=== PATIENT | female | born 1955 | race Caucasian/White ===

== ENCOUNTER 2017-07-13 05:54 | Inpatient (IN) | payer OTHER ==
--- NOTE | 2017-07-12 11:18 | PCM.PREANE ---
Preanesthetic Assessment - Anesthesia/Transfusion/Family Hx Anesthesia History: Prior Anesthesia Without Reaction Family History of Anesthesia Reaction: No Transfusion History: No Prior Transfusion(s) Intubation History: Unknown - Review of Systems General: No Symptoms Pulmonary: No Symptoms (ROSALIE-CPAP at night) Cardiovascular: No Symptoms Gastrointestinal: No Symptoms Neurological: No Symptoms (History of vertigo), Tingling (History of back surgery/laminectomy 2009-left sided sciatica pain) Other: Reports: Easy Bruising, Thyroid Problems (History of hypothyroidism) - Physical Assessment NPO Status Date: 07/12/17 NPO Status Time: 21:30 Pulse: 66 O2 Sat by Pulse Oximetry: 96 Respiratory Rate: 16 Blood Pressure: 128/65 Temperature: 36.9 C Height: 1.57 m Weight: 99 kg ASA Class: 2 Mental Status: Alert & Oriented x3 Airway Class: Mallampati = 3 Dentition: Reports: Normal Dentition, Avera(s) (dental implants), Caries Thyro-Mental Finger Breadths: 3 Mouth Opening Finger Breadths: 3 ROM/Head Extension: Full Lungs: Clear to Auscultation, Normal Respiratory Effort Cardiovascular: Regular Rate, Regular Rhythm, No Murmurs - Lab Values: Laboratory Last Values MRSA (PCR) Negative 07/04/17 15:12 All lab values reviewed and noted and within acceptable ranges to proceed with scheduled procedure. - Imaging/EKG Impressions: CXR: unremarkable EKG:Sinus bradycardia rate= 58 - Allergies Allergies/Adverse Reactions: Allergies Allergy/AdvReac Type Severity Reaction Status Date / Time No Known Allergies Allergy Verified 07/12/17 13:06 - Anesthesia Plan Pre-Op Medication Ordered: None - Acknowledgements Anesthesia Type Planned: Spinal (Right adductor canal block under US guidance for post operative pain control requested by Dr. Le) Pt an Appropriate Candidate for the Planned Anesthesia: Yes Alternatives and Risks of Anesthesia Discussed w Pt/Guardian: Yes Pt/Guardian Understands and Agrees with Anesthesia Plan: Yes PreAnesthesia Questionnaire Other HEENT History: wears contact Other Psychiatric History: claustophobic - SUBSTANCE USE Smoking Status *Q: Never Smoker Days Per Week of Alcohol Use: 0 Number of Drinks Per Day: 0 Total Drinks Per Week: 0 Recreational Drug Use History: No - HOME MEDS Home Medications: Home Meds Aspirin [Rayne Chewable Aspirin] 1 tab PO DAILY 12/01/14 [History] Multivitamin [Multi-Vitamin Daily] 1 tab PO DAILY 03/03/14 [History] Tolterodine [Detrol] 1 mg PO DAILY PRN 03/03/14 [History] Vitamin B Complex [B Complex] 1 tab PO DAILY 03/03/14 [History] Lutein/Minerals/Vit A,C & E [Ocuvite] 1 tab PO DAILY 02/16/15 [History] Ibuprofen 600 mg PO Q4HR PRN #30 tablet 02/17/15 [Rx] Ascorbic Acid [Vitamin C] 500 mg PO BID 07/12/17 [History] Ca Carbonate/Vitamin D3/Vit K [Calcium + D Soft Chewable Tab] 1 tab PO DAILY 02/18 [History] Levothyroxine [Synthroid] 50 mcg PO DAILY 07/12/17 [History] Ubidecarenone [COQ-10] 30 mg PO DAILY 07/12/17 [History] rOPINIRole HCl [Requip] 0.5 mg PO DAILY PRN 07/12/17 [History] Acetaminophen [Tylenol] 2 tab PO ASDIRECTED PRN 07/13/17 [History] - CURRENT (IN HOUSE) MEDS Current Meds: Current Medications Acetaminophen (Tylenol) 975 mg PO ASDIRECTED ALYSA Stop: 07/13/17 12:00 Lactated Ringer's (Ringers, Lactated) 1,000 mls @ 125 mls/hr IV ASDIRECTED ALYSA Stop: 07/13/17 23:00 Lidocaine/Sodium Bicarbonate (Buffered Lidocaine 1% In Ns 8.4%) 0.25 ml IDERM ONETIME PRN PRN Reason: Prior to IV Start Stop: 07/13/17 18:00 Oxycodone HCl (Oxycontin) 10 mg PO ASDIRECTED ALYSA Stop: 07/13/17 12:00 Pregabalin (Lyrica) 50 mg PO ASDIRECTED ALYSA Stop: 07/13/17 12:00 Sodium Chloride (Saline Flush) 10 ml FLUSH ASDIRECTED PRN PRN Reason: Keep Vein Open Stop: 07/13/17 18:00
[~2017-07-13 05:54] MED LIST: EPINEPHrine 1 MG/ML SDV ONE; Lactated Ringers 1,000 ML IV SCH; Lidocaine 1%/Sod Bicarbonate in NS 8.4% 1 ML Syringe IDERM PRN; Ropivacaine 0.5% 5 MG/ML 30 ML SDV ONE; Scopolamine 1.5 MG Transdermal Patch TRDERM SCH; Sodium Chloride 0.9% 10 ML Syringe FLUSH PRN
[2017-07-13] MEDS ORDERED: Iodine/Sodium Iodide 2% Tincture 30 ML Bottle ONE (06:04)
[2017-07-13] MEDS ORDERED: ceFAZolin 1 GM Vial ONE ×2 (06:04→06:25)
[2017-07-13] MEDS ORDERED: Lactated Ringers 1,000 ML ONE ×2 (06:25→08:36)
[2017-07-13] MEDS ORDERED: Bupivacaine 0.75% 30 ML SDV ONE (06:25)
[2017-07-13] MEDS ORDERED: Phenylephrine 1% 10 MG/ML SDV ONE (06:25)
[2017-07-13] MEDS ORDERED: Ketorolac 30 MG/ML SDV ONE (06:25)
[2017-07-13] MEDS ORDERED: Ondansetron 4 MG/2 ML SDV ONE (06:25)
[2017-07-13] MEDS ORDERED: Ketamine 500 mg/10 ML MDV ONE (06:26)
[2017-07-13] MEDS ORDERED: fentaNYL 100 MCG/2 ML SDV ONE (06:26)
[2017-07-13] MEDS ORDERED: Propofol 200 MG/20 ML SDV ONE ×2 (06:26→08:35)
[2017-07-13] MEDS ORDERED: Midazolam 1 MG/ML 2 ML SDV ONE (06:26)
[2017-07-13] MEDS ORDERED: Morphine PF 10 MG/10 ML SDV ONE (06:27)
[2017-07-13] MEDS ORDERED: oxyCODONE ER 10 MG TAB.ER PO SCH (06:30)
[2017-07-13] MEDS ORDERED: Pregabalin 25 MG Cap PO SCH (06:30)
[2017-07-13] MEDS ORDERED: Acetaminophen 325 MG Tab PO SCH (06:30)
[2017-07-13] MEDS ORDERED: Bisacodyl 5 MG Tab PO PRN (06:53)
[2017-07-13] MEDS ORDERED: diphenhydrAMINE 50 MG/ML SDV IVPUSH PRN ×2 (06:53→07:20)
[2017-07-13] MEDS ORDERED: Morphine 2 MG/ML Syringe IVPUSH PRN (06:53)
[2017-07-13] MEDS ORDERED: Magnesium Hydroxide 400 MG/5 ML Susp 30 ML Cup PO PRN (06:53)
[2017-07-13] MEDS ORDERED: Ondansetron 4 MG/2 ML SDV IVPUSH PRN ×2 (06:53→07:20)
[2017-07-13] MEDS ORDERED: Naloxone 0.4 MG/ML SDV IVPUSH PRN (06:53)
[2017-07-13] MEDS ORDERED: Sennosides 8.6 MG Tab PO PRN (06:53)
[2017-07-13] MEDS ORDERED: Ketorolac 15 MG/ML SDV IVPUSH PRN (06:53)
[2017-07-13] MEDS ORDERED: Cyclobenzaprine 10 MG Tab PO PRN (06:53)
[2017-07-13] MEDS ORDERED: ceFAZolin 2 GM in Premix Bag 1 BAG IV SCH (07:00)
[2017-07-13] MEDS ORDERED: Haloperidol Lactate 5 MG/ML SDV IVPUSH ONE (07:20)
[2017-07-13] MEDS ORDERED: fentaNYL 100 MCG/2 ML SDV IVPUSH PRN (07:20)
[2017-07-13] MEDS ORDERED: ePHEDrine 50 MG/ML SDV IVPUSH PRN (07:20)
[2017-07-13] MEDS ORDERED: HYDROmorphone 0.5 MG/0.5 ML Syringe IVPUSH PRN (07:21)
[2017-07-13] MEDS ORDERED: Phenylephrine 1 MG in Sodium Chloride 0.9% 10 ML IV SCH (07:30)
[2017-07-13] MEDS ORDERED: Lidocaine 1% 2 ML ONE ×2 (07:30)
[2017-07-13] MEDS: Bupivacaine 0.25% 30 ML SDV ONE ×2 (08:12→08:19)
[2017-07-13] MEDS: Morphine 8 MG, EPINEPHrine 0.3 MG, Cefuroxime 750 MG, Ketorolac 30 MG, Sodium Chloride ... ONE ×10 (08:13→08:20)
[2017-07-13] MEDS: Vancomycin 1 GM SDV ONE ×2 (08:15→08:20)
--- NOTE | 2017-07-13 09:00 | PCM.POSTAN ---
POST ANESTHESIA ASSESSMENT - MENTAL STATUS Mental Status: Alert - VITAL SIGNS Pulse Rate: 72 SaO2: 93 Resp Rate: 24 Blood Pressure: 100/45 Temperature: 36.4 C - RESPIRATORY Respiratory Status: Respiratory Rate WNL, Airway Patent, O2 Saturation Stable, Supplemental Oxygen - CARDIOVASCULAR CV Status: Pulse Rate WNL, Blood Pressure Stable - GASTROINTESTINAL GI Status: No Symptoms - POST OP HYDRATION Hydration Status: Adequate & Stable
--- NOTE | 2017-07-13 09:24 | PCM.CONS ---
H&P History of Present Illness - General Date of Service: 07/13/17 Admit Problem/Dx: Admission Diagnosis/Problem Admission Diagnosis/Problem Osteoarthritis of knee Source of Information: Patient, Old Records, Provider, RN, Other (Surgical notes ) History Limitations: Reports: No Limitations - History of Present Illness Initial Comments - Free Text/Narative: Rebecca Sanchez is a 62 yo female patient of Dr. Le who is post-operative day 0 of right TKA. Hospital medicine was consulted for post-operative medical care. At this time she is resting comfortably in bed. Pain is controlled at 2/10. She denies any chest pain, shortness of breath, palpitations, or vomiting. She did have some nausea earlier but it has since resolved. She carries a history of: HLD, hypothyroid, ROSALIE, RLS, incontinence, vertigo, depression. She was never a smoker. She is a full code. Her primary care provider is Dr. Chelo Quiroz. Right Knee Pain Score (Numeric/FACES): 2 - Related Data Allergies/Adverse Reactions: Allergies Allergy/AdvReac Type Severity Reaction Status Date / Time No Known Allergies Allergy Verified 07/12/17 13:06 Home Medications: Home Meds Aspirin [Rayne Chewable Aspirin] 1 tab PO DAILY 03/03/14 [History] Multivitamin [Multi-Vitamin Daily] 1 tab PO DAILY 03/03/14 [History] Tolterodine [Detrol] 1 mg PO DAILY PRN 03/03/14 [History] Vitamin B Complex [B Complex] 1 tab PO DAILY 03/03/14 [History] Lutein/Minerals/Vit A,C & E [Ocuvite] 1 tab PO DAILY 02/16/15 [History] Ibuprofen 600 mg PO Q4HR PRN #30 tablet 02/17/15 [Rx] Ascorbic Acid [Vitamin C] 500 mg PO BID 07/12/17 [History] Ca Carbonate/Vitamin D3/Vit K [Calcium + D Soft Chewable Tab] 1 tab PO DAILY 02/18 [History] Levothyroxine [Synthroid] 50 mcg PO DAILY 07/12/17 [History] Ubidecarenone [COQ-10] 30 mg PO DAILY 07/12/17 [History] rOPINIRole HCl [Requip] 0.5 mg PO DAILY PRN 07/12/17 [History] Acetaminophen [Tylenol] 2 tab PO ASDIRECTED PRN 07/13/17 [History] Past Medical History HEENT History: Reports: Other (See Below) Other HEENT History: wears contact Cardiovascular History: Reports: High Cholesterol Respiratory History: Reports: Sleep Apnea Gastrointestinal History: Reports: None Genitourinary History: Reports: Urinary Incontinence [employer]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 Musculoskeletal History: Reports: Other (See Below) Other Musculoskeletal History: restless leg syndrome Neurological History: Reports: Vertigo Psychiatric History: Reports: Depression Other Psychiatric History: claustophobic Endocrine/Metabolic History: Reports: Hypothyroidism, Obesity/BMI 30+, Vitamin D Deficiency Hematologic History: Reports: None Immunologic History: Reports: None Oncologic (Cancer) History: Reports: None Dermatologic History: Reports: Other (See Below) Other Dermatologic History: lesion to face - Past Surgical History Head Surgeries/Procedures: Reports: None HEENT Surgical History: Reports: Tonsillectomy Cardiovascular Surgical History: Reports: None Respiratory Surgical History: Reports: None GI Surgical History: Reports: Colonoscopy Female Surgical History: Reports: D&C Male Surgical History: Reports: None Endocrine Surgical History: Reports: None Neurological Surgical History: Reports: Laminectomy Social & Family History - Tobacco Use Smoking Status *Q: Never Smoker - Caffeine Use Caffeine Use: Reports: Coffee, Soda - Alcohol Use Days Per Week of Alcohol Use: 0 Number of Drinks Per Day: 0 Total Drinks Per Week: 0 - Recreational Drug Use Recreational Drug Use: No Drug Use in Last 12 Months: No H&P Review of Systems - Review of Systems: Review Of Systems: See Below General: Reports: No Symptoms HEENT: Reports: No Symptoms Pulmonary: Reports: No Symptoms Cardiovascular: Reports: No Symptoms Gastrointestinal: Reports: No Symptoms Genitourinary: Reports: No Symptoms Musculoskeletal: Reports: Joint Pain Skin: Reports: No Symptoms Psychiatric: Reports: No Symptoms Neurological: Reports: No Symptoms Hematologic/Lymphatic: Reports: No Symptoms Immunologic: Reports: No Symptoms Exam - Exam Exam: See Below - Vital Signs Vital Signs: Last Vital Signs Temp 97.6 F 07/13/17 09:00 Pulse 72 07/13/17 09:00 Resp 24 H 07/13/17 09:00 BP 100/45 L 07/13/17 09:00 Pulse Ox 93 L 07/13/17 09:00 Weight: 218 lb 4.122 oz - Exam Quality Assessment: DVT Prophylaxis General: Alert, Oriented, Cooperative. No: Mild Distress HEENT: Conjunctiva Clear, EACs Clear, EOMI, Hearing Intact, Mucosa Moist & [place] , Nares Patent, Posterior Pharynx Clear, PERRLA Neck: Supple, Trachea Midline Lungs: Clear to Auscultation, Normal Respiratory Effort Cardiovascular: Regular Rate, Regular Rhythm GI/Abdominal Exam: Normal Bowel Sounds, Soft, Non-Tender, No Organomegaly, No Distention, No Abnormal Bruit, No Mass, Pelvis Stable (Female) Exam: Deferred Rectal (Female) Exam: Deferred Back Exam: Normal Inspection, Full Range of Motion Extremities: No Pedal Edema, Normal Capillary Refill, Leg Pain, Limited Range of Motion, Other (ARAMIS bandgae on right leg. Bandage is dry and intact. Cooling pack in place. ) Peripheral Pulses: 2+: Posterior Tibial (L), Posterior Tibial (R), Dorsalis Pedis (L), Dorsalis Pedis (R), 3+: Radial (L), Radial (R) Skin: Warm, Dry, Intact Neurological: Cranial Nerves Intact (grossly ) Neuro Extensive - Mental Status: Alert, Oriented x3, Normal Mood/Affect, Normal Cognition, Memory Intact Psychiatric: Alert, Normal Affect, Normal Mood Consult PN Assessment/Plan POD#: 0 Procedures: Procedures ASSAY OF CK (CPK) (02/17/15) ASSAY OF GONADOTROPIN (FSH) (01/13/14) ASSAY OF GONADOTROPIN (LH) (01/13/14) BLOOD TYPING SEROLOGIC ABO (02/17/15) BLOOD TYPING SEROLOGIC RH(D) (02/17/15) BONE IMAGING LIMITED AREA (02/01/16) COMP SCREEN MAMMOGRAM ADD-ON (03/02/15) COMPLETE CBC AUTOMATED (02/17/15) COMPLETE CBC W/AUTO DIFF WBC (02/17/14) DXA BONE DENSITY AXIAL (03/02/15) ELECTROCARDIOGRAM TRACING (03/04/14) HYSTEROSCOPY BIOPSY (03/04/14) RBC ANTIBODY SCREEN (02/17/15) REPAIR BLADDER DEFECT (02/17/15) ROUTINE VENIPUNCTURE (02/17/15) TISSUE EXAM BY PATHOLOGIST (02/17/15) TISSUE EXAM BY PATHOLOGIST (03/04/14) URINALYSIS AUTO W/O SCOPE (02/17/14) US EXAM PELVIC COMPLETE (12/10/13) VAG HYST INCLUDING T/O (02/17/15) (1) S/P total knee arthroplasty SNOMED Code(s): 3717296032103, 950972365, 8468848449728 Code(s): Z96.659 - PRESENCE OF UNSPECIFIED ARTIFICIAL KNEE JOINT Priority: High Current Visit: Yes Qualifiers: Laterality: right Qualified Code(s): Z96.651 - Presence of right artificial knee joint (2) Osteoarthritis SNOMED Code(s): 380722750 Code(s): M19.90 - UNSPECIFIED OSTEOARTHRITIS, UNSPECIFIED SITE Priority: High Current Visit: Yes Qualifiers: Osteoarthritis location: knee Osteoarthritis type: primary Laterality: right Qualified Code(s): M17.11 - Unilateral primary osteoarthritis, right knee (3) HLD (hyperlipidemia) SNOMED Code(s): 14850140 Code(s): E78.5 - HYPERLIPIDEMIA, UNSPECIFIED Priority: Low Current Visit : No Qualifiers: Hyperlipidemia type: unspecified Qualified Code(s): E78.5 - Hyperlipidemia , unspecified (4) Hypothyroidism SNOMED Code(s): 97120556 Code(s): E03.9 - HYPOTHYROIDISM, UNSPECIFIED Priority: Low Current Visit : No Qualifiers: Hypothyroidism type: unspecified Qualified Code(s): E03.9 - Hypothyroidism , unspecified (5) Sleep apnea SNOMED Code(s): 01666287 Code(s): G47.30 - SLEEP APNEA, UNSPECIFIED Priority: Medium Current Visit : Yes Qualifiers: Sleep apnea type: unspecified type Qualified Code(s): G47.30 - Sleep apnea , unspecified (6) RLS (restless legs syndrome) SNOMED Code(s): 65886380 Code(s): G25.81 - RESTLESS LEGS SYNDROME Priority: Low Current Visit: No (7) Incontinence SNOMED Code(s): 93636838 Code(s): R32 - UNSPECIFIED URINARY INCONTINENCE Priority: Low Current Visit: No Qualifiers: Incontinence type: urinary Urinary Incontinence type: unspecified incontinence Qualified Code(s): R32 - Unspecified urinary incontinence (8) Vertigo SNOMED Code(s): 484413514 Code(s): R42 - DIZZINESS AND GIDDINESS Priority: Low Current Visit: No (9) Other specified depressive episodes SNOMED Code(s): 44904642 Code(s): F32.89 - OTHER SPECIFIED DEPRESSIVE EPISODES Priority: Low Current Visit: No Problem List Initiated/Reviewed/Updated: Yes Plan: I/P: Acute: S/P right total knee arthroplasty - post-operative day 0 -DVT prophylaxis and pain management per primary care team -PT/OT -IS/RT -Monitor oxygen saturation -Titrate oxygen as needed -Vital signs stable -Monitor labs -Pre-operative Hgb was 14.4 -Pre-operative GFR 64 Osteoarthritis of right knee -Pain management per primary care team Bradycardia -Noted on Pre-operative exam -Asymptomatic -Monitor Chronic: HLD Hypothyroid ROSALIE RLS Incontinence Vertigo Depression Plan: CM for discharge planning GI prophylaxis Home medications as indicated Other orders as listed above Routine AM labs She is a full code. Her PCP is Dr. Chelo Quiroz at [facility] Thank you for allowing us to participate in the care of this patient!! Requesting Provider: Dr. Le Date Consult Requested: 07/13/17 Reason for Consult: Post-operative medical managmenet Patient History Reviewed: Yes Admission H&P Reviewed: Yes Time Spent (in minutes): 30
--- NOTE | 2017-07-13 10:22 | PCM.SN ---
- Free Text/Narrative Note: Right selective femoral nerve block at the adductor canal for post-procedure pain control under US guidance requested by Dr. Le. Date: 07/13/17 Time Out: 902 Start: 903 End: 916 Chart reviewed. Consent signed. Questions answered. Appropriate monitors applied. Time out performed. Right mid-shaft femur identified with ultrasound, scanning medially of femur, the femoral artery in the adductor canal visualized , and the femoral nerve located laterally to the artery. The skin was prepped lateral to the ultrasound probe with chlorahexadine times two. The 21ga 4 insulated block needle was inserted under direct ultrasound guidance into the adductor canal. 30mL of 0.5% ropivacaine with 1:200,000 epinephrine was injected circumferentially around the nerve with intermittent negative aspiration noted. Patient tolerated the procedure well. Aseptic technique noted along with sterile gloves, mask, and sterile probe cover. See pictures on progress note and vital signs on nurses notes. Block completed in PACU. Shirin Dye CRNA
[2017-07-13] MEDS ORDERED: rOPINIRole 0.25 MG Tab PO PRN (10:30)
[2017-07-13] MEDS ORDERED: Tolterodine 2 MG Tab PO PRN (10:30)
--- NOTE | 2017-07-13 10:39 | CR ---
Right knee: AP and lateral views of the right knee were obtained. Comparison: No previous knee study. Knee prosthesis is noted. Components are aligned. Soft tissue air is noted from the surgical procedure. Underlying bony structures are intact. Impression: 1. Satisfactory postoperative radiographic appearance of recently placed right knee prosthesis. Diagnostic code #2
[2017-07-13] MEDS: Famotidine 20 MG Tab PO SCH ×2 (13:44→18:01)
[2017-07-13] MEDS: Acetaminophen/oxyCODONE 325-5 MG Tab PO PRN ×2 (13:46→18:01)
[2017-07-13] MEDS: ceFAZolin 2 GM in Premix Bag 1 BAG IV SCH (13:47)
[2017-07-13] MEDS: Multivitamins,Therapeutic Tab PO SCH (13:59)
[2017-07-13] MEDS ORDERED: Metoclopramide 10 MG/2 ML SDV IVPUSH PRN (16:13)
[2017-07-13] MEDS: Docusate Sodium 100 MG Cap PO SCH (20:13)
[2017-07-14] MEDS: ceFAZolin 2 GM in Premix Bag 1 BAG IV SCH ×2 (00:32→07:07)
[2017-07-14] MEDS: Acetaminophen/oxyCODONE 325-5 MG Tab PO PRN ×3 (00:33→13:32)
--- NOTE | 2017-07-14 06:34 | PCM.CONSN ---
- General Info Date of Service: 07/14/17 Admission Dx/Problem (Free Text): Admission Diagnosis/Problem Admission Diagnosis/Problem Osteoarthritis of knee Subjective Update: In to see Rebecca. She is sitting up eating in the chair. She has been working with PT earlier and doing well. Her oxygen saturations dropped a bit overnight. I did discuss this with RT and they advised she wear her CPAP religiously at night and when napping. Saturations have been good today and she was weaned off O2. Patient has no concerns today. She did have an episode of emesis after showering but states it resolved rapidly. She is not nauseated now. She is doing well and will be discharged today. Functional Status: Reports: Pain Controlled, Tolerating Diet, Ambulating, Urinating. Denies: New Symptoms - Review of Systems General: Reports: No Symptoms. Denies: Weakness, Fatigue HEENT: Reports: No Symptoms Pulmonary: Reports: No Symptoms. Denies: Shortness of Breath, Cough, Sputum, Wheezing Cardiovascular: Reports: No Symptoms. Denies: Chest Pain, Palpitations Gastrointestinal: Reports: No Symptoms. Denies: Abdominal Pain, Constipation, Diarrhea, Nausea, Vomiting Genitourinary: Reports: No Symptoms. Denies: Dysuria, Frequency, Pain Musculoskeletal: Reports: Joint Pain Skin: Reports: No Symptoms Neurological: Reports: No Symptoms Psychiatric: Reports: No Symptoms - Patient Data Vitals - Most Recent: Last Vital Signs Temp 97.5 F 07/13/17 20:00 Pulse 51 L 07/13/17 20:00 Resp 14 07/13/17 20:00 BP 113/55 L 07/13/17 20:00 Pulse Ox 97 07/13/17 20:00 Weight - Most Recent: 226 lb 1.6 oz I&O - Last 24 Hours: Intake & Output 07/13/17 07/13/17 07/14/17 14:59 22:59 06:59 Intake Total 600 1100 240 Output Total 275 2050 625 Balance 325 -950 -385 Med Orders - Current: Current Medications Aspirin (Ecotrin) 325 mg PO BID ALYSA Bisacodyl (Dulcolax) 5 mg PO DAILY PRN PRN Reason: Constipation Cyclobenzaprine HCl (Flexeril) 10 mg PO TID PRN PRN Reason: Spasms Diphenhydramine HCl (Benadryl) 25 mg IVPUSH Q6H PRN PRN Reason: pruritis Docusate Sodium (Colace) 100 mg PO BID [facility] Last Admin: 07/13/17 20:13 Dose: 100 mg Famotidine (Pepcid) 20 mg PO Q12H [facility] Last Admin: 07/13/17 18:01 Dose: 20 mg Cefazolin Sodium/Dextrose 2 gm (/ Premix) 50 mls @ 100 mls/hr IV Q8H [facility] Stop: 07/14/17 06:59 Last Admin: 07/14/17 00:32 Dose: 100 mls/hr Ketorolac Tromethamine (Toradol) 15 mg IVPUSH Q6H PRN PRN Reason: Pain Levothyroxine Sodium (Synthroid) 50 mcg PO ACBRK [facility] Magnesium Hydroxide (Milk Of Magnesia) 30 ml PO BID PRN PRN Reason: Constipation Metoclopramide HCl (Reglan) 5 mg IVPUSH Q6H PRN PRN Reason: Nausea/Vomiting Last Admin: 07/13/17 17:08 Dose: 5 mg Morphine Sulfate (Morphine) 2 mg IVPUSH Q2H PRN PRN Reason: Breakthrough Pain Multivitamins (Thera) 1 each PO DAILY [facility] Last Admin: 07/13/17 13:59 Dose: Not Given Naloxone HCl (Narcan) 0.1 mg IVPUSH Q5M PRN PRN Reason: Oversedation Ondansetron HCl (Zofran) 4 mg IVPUSH Q6H PRN PRN Reason: Nausea/Vomiting Last Admin: 07/13/17 11:56 Dose: 4 mg Ondansetron HCl (Zofran) 4 mg IVPUSH ONETIME PRN PRN Reason: Nausea/Vomiting Oxycodone/Acetaminophen (Percocet 325-5 Mg) 1 - 2 tab PO Q4H PRN PRN Reason: Pain Last Admin: 07/14/17 00:33 Dose: 1 tab Ubidecarenone 30 Mg 0 each PO DAILY [facility] Ropinirole HCl (Requip) 0.5 mg PO DAILY PRN PRN Reason: RESTLESS LEGS Senna (Senna) 8.6 mg PO BID PRN PRN Reason: Constipation Tolterodine Tartrate (Detrol) 1 mg PO DAILY PRN PRN Reason: URGENCY Vitamin B Complex/Vitamin C (Super B With Vitamin C) 1 cap PO DAILY [facility] Discontinued Medications Acetaminophen (Tylenol) 975 mg PO ASDIRECTED [facility] Stop: 07/13/17 12:00 Last Admin: 07/13/17 06:23 Dose: 975 mg Bupivacaine HCl (Sensorcaine-Mpf 0.75%) Confirm Administered Dose 60 ml .ROUTE .STK-MED ONE Stop: 07/13/17 06:26 Bupivacaine HCl (Marcaine 0.25%) Confirm Administered Dose 30 ml .ROUTE .STK- MED ONE Stop: 07/13/17 06:05 Last Admin: 07/13/17 08:12 Dose: 30 ml Cefazolin Sodium (Ancef) Confirm Administered Dose 2 gm .ROUTE .STK-MED ONE Stop: 07/13/17 06:26 Last Admin: 07/13/17 08:09 Dose: 2 gm Cefazolin Sodium (Ancef) Confirm Administered Dose 2 gm .ROUTE .STK-MED ONE Stop: 07/13/17 06:05 Morphine Sulfate 8 mg/Epinephrine HCl 0.3 mg/Cefuroxime Sodium 750 mg/Ketorolac Tromethamine 30 mg/Sodium Chloride 27.9 ml 0 mg .XX ONETIME ONE Stop: 07/13/17 07:46 Last Admin: 07/13/17 08:13 Dose: 788.3 mg Diphenhydramine HCl (Benadryl) 25 mg IVPUSH Q4H PRN PRN Reason: Nausea Ephedrine Sulfate (Ephedrine Sulfate) 5 mg IVPUSH ASDIRECTED PRN PRN Reason: Hypotension Epinephrine HCl (Adrenalin) Confirm Administered Dose 1 mg .ROUTE .STK-MED ONE Stop: 07/13/17 05:44 Fentanyl (Sublimaze) Confirm Administered Dose 100 mcg .ROUTE .STK-MED ONE Stop: 07/13/17 06:27 Fentanyl (Sublimaze) 50 mcg IVPUSH Q5M PRN PRN Reason: Pain Haloperidol Lactate (Haldol) 1 mg IVPUSH ONETIME ONE Stop: 07/13/17 07:21 Last Admin: 07/13/17 14:00 Dose: Not Given Hydromorphone HCl (Dilaudid) 0.5 mg IVPUSH ONETIME PRN PRN Reason: Pain Lactated Ringer's (Ringers, Lactated) 1,000 mls @ 125 mls/hr IV ASDIRECTED [facility] Stop: 07/13/17 23:00 Last Admin: 07/13/17 06:30 Dose: 125 mls/hr Lactated Ringer's (Ringers, Lactated) Confirm Administered Dose 1,000 mls @ as directed .ROUTE .STK-MED ONE Stop: 07/13/17 06:26 Cefazolin Sodium/Dextrose 2 gm (/ Premix) 50 mls @ 100 mls/hr IV Q8H [facility] Stop: 07/13/17 23:29 Last Admin: 07/13/17 14:00 Dose: Not Given Lidocaine HCl (Xylocaine-Mpf 1%) Confirm Administered Dose 2 mls @ as directed .ROUTE .STK-MED ONE Stop: 07/13/17 07:31 Lidocaine HCl (Xylocaine-Mpf 1%) Confirm Administered Dose 2 mls @ as directed .ROUTE .STK-MED ONE Stop: 07/13/17 07:31 Phenylephrine HCl 1 mg/ Sodium (Chloride) 10.1 mls @ 1 mls/sec IV TITRATE ALYSA; Protocol Lactated Ringer's (Ringers, Lactated) Confirm Administered Dose 1,000 mls @ as directed .ROUTE .STK-MED ONE Stop: 07/13/17 08:37 Iodine (Iodine 2% Mild Tincture) Confirm Administered Dose 30 ml .ROUTE .STK- MED ONE Stop: 07/13/17 06:05 Last Admin: 07/13/17 08:05 Dose: 18 ml Ketamine HCl (Ketalar) Confirm Administered Dose 500 mg .ROUTE .STK-MED ONE Stop: 07/13/17 06:27 Ketorolac Tromethamine (Toradol) Confirm Administered Dose 30 mg .ROUTE .STK- MED ONE Stop: 07/13/17 06:26 Lidocaine HCl (Xylocaine-Mpf 1%) Confirm Administered Dose 25 ml .ROUTE .STK- MED ONE Stop: 07/13/17 06:26 Lidocaine/Sodium Bicarbonate (Buffered Lidocaine 1% In Ns 8.4%) 0.25 ml IDERM ONETIME PRN PRN Reason: Prior to IV Start Stop: 07/13/17 18:00 Last Admin: 07/13/17 06:30 Dose: 0.25 ml Midazolam HCl (Versed 1 Mg/Ml) Confirm Administered Dose 2 mg .ROUTE .STK-MED ONE Stop: 07/13/17 06:27 Morphine Sulfate (Duramorph Pf) Confirm Administered Dose 10 mg .ROUTE .STK-MED ONE Stop: 07/13/17 06:28 Ondansetron HCl (Zofran) Confirm Administered Dose 4 mg .ROUTE .STK-MED ONE Stop: 07/13/17 06:26 Oxycodone HCl (Oxycontin) 10 mg PO ASDIRECTED [facility] Stop: 07/13/17 12:00 Last Admin: 07/13/17 06:22 Dose: 10 mg Phenylephrine HCl (Jeffrey-Synephrine) Confirm Administered Dose 10 mg .ROUTE .STK- MED ONE Stop: 07/13/17 06:26 Pregabalin (Lyrica) 50 mg PO ASDIRECTED [facility] Stop: 07/13/17 12:00 Last Admin: 07/13/17 06:22 Dose: 50 mg Propofol (Diprivan 20 Ml) Confirm Administered Dose 400 mg .ROUTE .STK-MED ONE Stop: 07/13/17 06:27 Propofol (Diprivan 20 Ml) Confirm Administered Dose 200 mg .ROUTE .STK-MED ONE Stop: 07/13/17 08:36 Ropivacaine (Naropin 0.5%) Confirm Administered Dose 30 ml .ROUTE .STK-MED ONE Stop: 07/13/17 05:44 Scopolamine (Transderm-Scop) 1.5 mg TRDERM ONETIME [facility] Stop: 07/13/17 18:00 Last Admin: 07/13/17 06:21 Dose: 1.5 mg Sodium Chloride (Saline Flush) 10 ml FLUSH ASDIRECTED PRN PRN Reason: Keep Vein Open Stop: 07/13/17 18:00 Tranexamic Acid (Cyklokapron) Confirm Administered Dose 1,000 mg .ROUTE .STK- MED ONE Stop: 07/13/17 06:05 Last Admin: 07/13/17 08:20 Dose: 1,000 mg Vancomycin HCl (Vancomycin) Confirm Administered Dose 1 gm .ROUTE .STK-MED ONE Stop: 07/13/17 06:05 Last Admin: 07/13/17 08:15 Dose: 1 gm - Exam Quality Assessment: DVT Prophylaxis General: Alert, Oriented, Cooperative, No Acute Distress HEENT: Pupils Equal, Pupils Reactive, EOMI, Mucous Membr. Moist/[place] Neck: Supple, Trachea Midline, No JVD Lungs: Clear to Auscultation, Normal Respiratory Effort Cardiovascular: Regular Rate, Regular Rhythm GI/Abdominal Exam: Normal Bowel Sounds, Soft, Non-Tender, No Organomegaly, No Distention, No Abnormal Bruit, No Mass, Pelvis Stable (Female) Exam: Deferred Back Exam: Normal Inspection, Full Range of Motion Extremities: No Pedal Edema, Normal Capillary Refill, Leg Pain, Limited Range of Motion Peripheral Pulses: 2+: Posterior Tibial (L), Posterior Tibial (R), Dorsalis Pedis (L), Dorsalis Pedis (R), 3+: Radial (L), Radial (R) Skin: Warm, Dry, Intact Wound/Incisions: Dressing Dry and Intact, No Drainage, Other (ARAMIS bandage on leg. Polar pack in place. ) Neurological: No New Focal Deficit Psy/Mental Status: Alert, Normal Affect, Normal Mood Consult PN Assessment/Plan POD#: 1 Procedures: Procedures ASSAY OF CK (CPK) (02/17/15) ASSAY OF GONADOTROPIN (FSH) (01/13/14) ASSAY OF GONADOTROPIN (LH) (01/13/14) BLOOD TYPING SEROLOGIC ABO (02/17/15) BLOOD TYPING SEROLOGIC RH(D) (02/17/15) BONE IMAGING LIMITED AREA (02/01/16) COMP SCREEN MAMMOGRAM ADD-ON (03/02/15) COMPLETE CBC AUTOMATED (02/17/15) COMPLETE CBC W/AUTO DIFF WBC (02/17/14) DXA BONE DENSITY AXIAL (03/02/15) ELECTROCARDIOGRAM TRACING (03/04/14) HYSTEROSCOPY BIOPSY (03/04/14) RBC ANTIBODY SCREEN (02/17/15) REPAIR BLADDER DEFECT (02/17/15) ROUTINE VENIPUNCTURE (02/17/15) TISSUE EXAM BY PATHOLOGIST (02/17/15) TISSUE EXAM BY PATHOLOGIST (03/04/14) URINALYSIS AUTO W/O SCOPE (02/17/14) US EXAM PELVIC COMPLETE (12/10/13) VAG HYST INCLUDING T/O (02/17/15) (1) S/P total knee arthroplasty SNOMED Code(s): 6427899164721, 271308253, 5973017152138 Code(s): Z96.659 - PRESENCE OF UNSPECIFIED ARTIFICIAL KNEE JOINT Priority: High Current Visit: Yes Qualifiers: Laterality: right Qualified Code(s): Z96.651 - Presence of right artificial knee joint (2) Osteoarthritis SNOMED Code(s): 815692242 Code(s): M19.90 - UNSPECIFIED OSTEOARTHRITIS, UNSPECIFIED SITE Priority: High Current Visit: Yes Qualifiers: Osteoarthritis location: knee Osteoarthritis type: primary Laterality: right Qualified Code(s): M17.11 - Unilateral primary osteoarthritis, right knee (3) HLD (hyperlipidemia) SNOMED Code(s): 75429228 Code(s): E78.5 - HYPERLIPIDEMIA, UNSPECIFIED Priority: Low Current Visit : No Qualifiers: Hyperlipidemia type: unspecified Qualified Code(s): E78.5 - Hyperlipidemia , unspecified (4) Hypothyroidism SNOMED Code(s): 25752157 Code(s): E03.9 - HYPOTHYROIDISM, UNSPECIFIED Priority: Low Current Visit : No Qualifiers: Hypothyroidism type: unspecified Qualified Code(s): E03.9 - Hypothyroidism , unspecified (5) Sleep apnea SNOMED Code(s): 18845746 Code(s): G47.30 - SLEEP APNEA, UNSPECIFIED Priority: Medium Current Visit : Yes Qualifiers: Sleep apnea type: unspecified type Qualified Code(s): G47.30 - Sleep apnea , unspecified (6) RLS (restless legs syndrome) SNOMED Code(s): 27557314 Code(s): G25.81 - RESTLESS LEGS SYNDROME Priority: Low Current Visit: No (7) Incontinence SNOMED Code(s): 40032869 Code(s): R32 - UNSPECIFIED URINARY INCONTINENCE Priority: Low Current Visit: No Qualifiers: Incontinence type: urinary Urinary Incontinence type: unspecified incontinence Qualified Code(s): R32 - Unspecified urinary incontinence (8) Vertigo SNOMED Code(s): 898318250 Code(s): R42 - DIZZINESS AND GIDDINESS Priority: Low Current Visit: No (9) Other specified depressive episodes SNOMED Code(s): 08480054 Code(s): F32.89 - OTHER SPECIFIED DEPRESSIVE EPISODES Priority: Low Current Visit: No Problem List Initiated/Reviewed/Updated: Yes My Orders Last 24 Hours: My Active Orders 07/13/17 12:51 CPAP Adult [RT BiPAP/CPAP] [RC] ASDIRECTED Plan: I/P: Acute: S/P right total knee arthroplasty - post-operative day 1 -DVT prophylaxis and pain management per primary care team -PT/OT -IS/RT -Monitor oxygen saturation -Titrate oxygen as needed - titrate as needed -Vital signs stable -Monitor labs -Pre-operative Hgb was 14.4, now 11.8 -Pre-operative GFR 64, now >60 Osteoarthritis of right knee -Pain management per primary care team Bradycardia -Noted on Pre-operative exam -Asymptomatic -Monitor Chronic: HLD Hypothyroid ROSALIE RLS Incontinence Vertigo Depression Plan: CM for discharge planning GI prophylaxis Home medications as indicated Other orders as listed above Routine AM labs She is a full code. Her PCP is Dr. Chelo Quiroz at [facility] She is doing well. Her labs today did show mildly low platelets. This can be followed up by PCP in future lab draws. From a hospitalist standpoint she is clear for discharge pending primary team agreement. Thank you for allowing us to participate in the care of this patient!!
--- NOTE | 2017-07-14 06:56 | PCM.SURGPN ---
- General Info Date of Service: 07/14/17 POD#: 1 - Patient Data Vitals - Most Recent: Last Vital Signs Temp 97.5 F 07/13/17 20:00 Pulse 51 L 07/13/17 20:00 Resp 14 07/13/17 20:00 BP 113/55 L 07/13/17 20:00 Pulse Ox 97 07/13/17 20:00 Weight - Most Recent: 226 lb 1.6 oz I&O - Last 24 Hours: Intake & Output 07/13/17 07/13/17 07/14/17 14:59 22:59 06:59 Intake Total 600 1100 240 Output Total 275 2050 625 Balance 325 -950 -385 Lab Results Last 24 Hrs: Laboratory Results - last 24 hr 07/14/17 Range/Units 06:09 WBC 10.93 H (3.98-10.04) K/mm3 RBC 3.73 L (3.98-5.22) M/mm3 Hgb 11.8 (11.2-15.7) gm/L Hct 36.6 (34.1-44.9) % MCV 98.1 H (79.4-94.8) fl MCH 31.6 (25.6-32.2) pg MCHC 32.2 (32.2-35.5) g/dl RDW Std Deviation 46.4 H (36.4-46.3) fL Plt Count 176 L (182-369) K/mm3 MPV 11.3 (9.4-12.3) fl Med Orders - Current: Current Medications Aspirin (Ecotrin) 325 mg PO BID [facility] Bisacodyl (Dulcolax) 5 mg PO DAILY PRN PRN Reason: Constipation Cyclobenzaprine HCl (Flexeril) 10 mg PO TID PRN PRN Reason: Spasms Diphenhydramine HCl (Benadryl) 25 mg IVPUSH Q6H PRN PRN Reason: pruritis Docusate Sodium (Colace) 100 mg PO BID [facility] Last Admin: 07/13/17 20:13 Dose: 100 mg Famotidine (Pepcid) 20 mg PO Q12H [facility] Last Admin: 07/13/17 18:01 Dose: 20 mg Cefazolin Sodium/Dextrose 2 gm (/ Premix) 50 mls @ 100 mls/hr IV Q8H [facility] Stop: 07/14/17 06:59 Last Admin: 07/14/17 00:32 Dose: 100 mls/hr Ketorolac Tromethamine (Toradol) 15 mg IVPUSH Q6H PRN PRN Reason: Pain Levothyroxine Sodium (Synthroid) 50 mcg PO ACBRK [facility] Magnesium Hydroxide (Milk Of Magnesia) 30 ml PO BID PRN PRN Reason: Constipation Metoclopramide HCl (Reglan) 5 mg IVPUSH Q6H PRN PRN Reason: Nausea/Vomiting Last Admin: 07/13/17 17:08 Dose: 5 mg Morphine Sulfate (Morphine) 2 mg IVPUSH Q2H PRN PRN Reason: Breakthrough Pain Multivitamins (Thera) 1 each PO DAILY [facility] Last Admin: 07/13/17 13:59 Dose: Not Given Naloxone HCl (Narcan) 0.1 mg IVPUSH Q5M PRN PRN Reason: Oversedation Ondansetron HCl (Zofran) 4 mg IVPUSH Q6H PRN PRN Reason: Nausea/Vomiting Last Admin: 07/13/17 11:56 Dose: 4 mg Ondansetron HCl (Zofran) 4 mg IVPUSH ONETIME PRN PRN Reason: Nausea/Vomiting Oxycodone/Acetaminophen (Percocet 325-5 Mg) 1 - 2 tab PO Q4H PRN PRN Reason: Pain Last Admin: 07/14/17 00:33 Dose: 1 tab Ubidecarenone 30 Mg 0 each PO DAILY [facility] Ropinirole HCl (Requip) 0.5 mg PO DAILY PRN PRN Reason: RESTLESS LEGS Senna (Senna) 8.6 mg PO BID PRN PRN Reason: Constipation Tolterodine Tartrate (Detrol) 1 mg PO DAILY PRN PRN Reason: URGENCY Vitamin B Complex/Vitamin C (Super B With Vitamin C) 1 cap PO DAILY [facility] Discontinued Medications Acetaminophen (Tylenol) 975 mg PO ASDIRECTED [facility] Stop: 07/13/17 12:00 Last Admin: 07/13/17 06:23 Dose: 975 mg Bupivacaine HCl (Sensorcaine-Mpf 0.75%) Confirm Administered Dose 60 ml .ROUTE .STK-MED ONE Stop: 07/13/17 06:26 Bupivacaine HCl (Marcaine 0.25%) Confirm Administered Dose 30 ml .ROUTE .STK- MED ONE Stop: 07/13/17 06:05 Last Admin: 07/13/17 08:12 Dose: 30 ml Cefazolin Sodium (Ancef) Confirm Administered Dose 2 gm .ROUTE .STK-MED ONE Stop: 07/13/17 06:26 Last Admin: 07/13/17 08:09 Dose: 2 gm Cefazolin Sodium (Ancef) Confirm Administered Dose 2 gm .ROUTE .STK-MED ONE Stop: 07/13/17 06:05 Morphine Sulfate 8 mg/Epinephrine HCl 0.3 mg/Cefuroxime Sodium 750 mg/Ketorolac Tromethamine 30 mg/Sodium Chloride 27.9 ml 0 mg .XX ONETIME ONE Stop: 07/13/17 07:46 Last Admin: 07/13/17 08:13 Dose: 788.3 mg Diphenhydramine HCl (Benadryl) 25 mg IVPUSH Q4H PRN PRN Reason: Nausea Ephedrine Sulfate (Ephedrine Sulfate) 5 mg IVPUSH ASDIRECTED PRN PRN Reason: Hypotension Epinephrine HCl (Adrenalin) Confirm Administered Dose 1 mg .ROUTE .STK-MED ONE Stop: 07/13/17 05:44 Fentanyl (Sublimaze) Confirm Administered Dose 100 mcg .ROUTE .STK-MED ONE Stop: 07/13/17 06:27 Fentanyl (Sublimaze) 50 mcg IVPUSH Q5M PRN PRN Reason: Pain Haloperidol Lactate (Haldol) 1 mg IVPUSH ONETIME ONE Stop: 07/13/17 07:21 Last Admin: 07/13/17 14:00 Dose: Not Given Hydromorphone HCl (Dilaudid) 0.5 mg IVPUSH ONETIME PRN PRN Reason: Pain Lactated Ringer's (Ringers, Lactated) 1,000 mls @ 125 mls/hr IV ASDIRECTED [facility] Stop: 07/13/17 23:00 Last Admin: 07/13/17 06:30 Dose: 125 mls/hr Lactated Ringer's (Ringers, Lactated) Confirm Administered Dose 1,000 mls @ as directed .ROUTE .STK-MED ONE Stop: 07/13/17 06:26 Cefazolin Sodium/Dextrose 2 gm (/ Premix) 50 mls @ 100 mls/hr IV Q8H [facility] Stop: 07/13/17 23:29 Last Admin: 07/13/17 14:00 Dose: Not Given Lidocaine HCl (Xylocaine-Mpf 1%) Confirm Administered Dose 2 mls @ as directed .ROUTE .STK-MED ONE Stop: 07/13/17 07:31 Lidocaine HCl (Xylocaine-Mpf 1%) Confirm Administered Dose 2 mls @ as directed .ROUTE .STK-MED ONE Stop: 07/13/17 07:31 Phenylephrine HCl 1 mg/ Sodium (Chloride) 10.1 mls @ 1 mls/sec IV TITRATE ALYSA; Protocol Lactated Ringer's (Ringers, Lactated) Confirm Administered Dose 1,000 mls @ as directed .ROUTE .STK-MED ONE Stop: 07/13/17 08:37 Iodine (Iodine 2% Mild Tincture) Confirm Administered Dose 30 ml .ROUTE .STK- MED ONE Stop: 07/13/17 06:05 Last Admin: 07/13/17 08:05 Dose: 18 ml Ketamine HCl (Ketalar) Confirm Administered Dose 500 mg .ROUTE .STK-MED ONE Stop: 07/13/17 06:27 Ketorolac Tromethamine (Toradol) Confirm Administered Dose 30 mg .ROUTE .STK- MED ONE Stop: 07/13/17 06:26 Lidocaine HCl (Xylocaine-Mpf 1%) Confirm Administered Dose 25 ml .ROUTE .STK- MED ONE Stop: 07/13/17 06:26 Lidocaine/Sodium Bicarbonate (Buffered Lidocaine 1% In Ns 8.4%) 0.25 ml IDERM ONETIME PRN PRN Reason: Prior to IV Start Stop: 07/13/17 18:00 Last Admin: 07/13/17 06:30 Dose: 0.25 ml Midazolam HCl (Versed 1 Mg/Ml) Confirm Administered Dose 2 mg .ROUTE .STK-MED ONE Stop: 07/13/17 06:27 Morphine Sulfate (Duramorph Pf) Confirm Administered Dose 10 mg .ROUTE .STK-MED ONE Stop: 07/13/17 06:28 Ondansetron HCl (Zofran) Confirm Administered Dose 4 mg .ROUTE .STK-MED ONE Stop: 07/13/17 06:26 Oxycodone HCl (Oxycontin) 10 mg PO ASDIRECTED [facility] Stop: 07/13/17 12:00 Last Admin: 07/13/17 06:22 Dose: 10 mg Phenylephrine HCl (Jeffrey-Synephrine) Confirm Administered Dose 10 mg .ROUTE .STK- MED ONE Stop: 07/13/17 06:26 Pregabalin (Lyrica) 50 mg PO ASDIRECTED [facility] Stop: 07/13/17 12:00 Last Admin: 07/13/17 06:22 Dose: 50 mg Propofol (Diprivan 20 Ml) Confirm Administered Dose 400 mg .ROUTE .STK-MED ONE Stop: 07/13/17 06:27 Propofol (Diprivan 20 Ml) Confirm Administered Dose 200 mg .ROUTE .STK-MED ONE Stop: 07/13/17 08:36 Ropivacaine (Naropin 0.5%) Confirm Administered Dose 30 ml .ROUTE .STK-MED ONE Stop: 07/13/17 05:44 Scopolamine (Transderm-Scop) 1.5 mg TRDERM ONETIME [facility] Stop: 07/13/17 18:00 Last Admin: 07/13/17 06:21 Dose: 1.5 mg Sodium Chloride (Saline Flush) 10 ml FLUSH ASDIRECTED PRN PRN Reason: Keep Vein Open Stop: 07/13/17 18:00 Tranexamic Acid (Cyklokapron) Confirm Administered Dose 1,000 mg .ROUTE .STK- MED ONE Stop: 07/13/17 06:05 Last Admin: 07/13/17 08:20 Dose: 1,000 mg Vancomycin HCl (Vancomycin) Confirm Administered Dose 1 gm .ROUTE .STK-MED ONE Stop: 07/13/17 06:05 Last Admin: 07/13/17 08:15 Dose: 1 gm - Problem List Review Problem List Initiated/Reviewed/Updated: Yes - My Orders Last 24 Hours: Active Orders 24 hr Category Date Time Status Patient Status [ADT] Routine ADT 07/13/17 06:53 Active Ambulate [RC] PER UNIT ROUTINE Care 07/13/17 06:53 Active CPAP Adult [RT BiPAP/CPAP] [RC] ASDIRECTED Care 07/13/17 12:51 Active Communication Order [RC] ASDIRECTED Care 07/13/17 07:19 Active Cooling Warming Measures [RC] ASDIRECTED Care 07/13/17 07:19 Inactive May Shower [RC] ASDIRECTED Care 07/13/17 06:53 Active Notify Provider Consults [RC] ASDIRECTED Care 07/13/17 06:59 Active Notify Provider [RC] ASDIRECTED Care 07/13/17 07:20 Active Oxygen Therapy [RC] PRN Care 07/13/17 06:53 Active Pulse Oximetry [RC] ASDIRECTED Care 07/13/17 07:19 Active RT Incentive Spirometry [RC] ASDIRECTED Care 07/13/17 06:52 Active Ready for Discharge [RC] PER UNIT ROUTINE Care 07/14/17 06:54 Active Up to Chair [RC] ASDIRECTED Care 07/13/17 06:53 Active Vital Signs [RC] Q1H Care 07/13/17 07:19 Inactive Vital Signs [RC] Q4HR Care 07/13/17 06:53 Active Consult to Physician [CONS] Routine Cons 07/13/17 06:53 Active OT Evaluation and Treatment [CONS] Routine Cons 07/13/17 06:52 Active PT Evaluation and Treatment [CONS] Routine Cons 07/13/17 06:52 Active Regular Diet [DIET] Diet 07/13/17 Lunch Active COMPREHENSIVE METABOLIC PN,CMP [CHEM] AM Lab 07/14/17 06:09 Received Acetaminophen/oxyCODONE [Percocet 325-5 MG] Med 07/13/17 06:53 Active 1 - 2 tab PO Q4H PRN Aspirin [Ecotrin] Med 07/14/17 09:00 Active 325 mg PO BID Bisacodyl [Dulcolax] Med 07/13/17 06:53 Active 5 mg PO DAILY PRN Cyclobenzaprine [Flexeril] Med 07/13/17 06:53 Active 10 mg PO TID PRN Docusate Sodium [Colace] Med 07/13/17 21:00 Active 100 mg PO BID Famotidine [Pepcid] Med 07/13/17 07:00 Active 20 mg PO Q12H Ketorolac [Toradol] Med 07/13/17 06:53 Active 15 mg IVPUSH Q6H PRN Levothyroxine [Synthroid] Med 07/14/17 06:00 Active 50 mcg PO ACBRK Magnesium Hydroxide [Milk of Magnesia] Med 07/13/17 06:53 Active 30 ml PO BID PRN Metoclopramide [Reglan] Med 07/13/17 16:13 Active 5 mg IVPUSH Q6H PRN Morphine Med 07/13/17 06:53 Active 2 mg IVPUSH Q2H PRN Multivitamins,Therapeutic [Thera] Med 07/13/17 10:30 Active 1 each PO DAILY Naloxone [Narcan] Med 07/13/17 06:53 Active 0.1 mg IVPUSH Q5M PRN Ondansetron [Zofran] Med 07/13/17 07:20 Active 4 mg IVPUSH ONETIME PRN Ondansetron [Zofran] Med 07/13/17 06:53 Active 4 mg IVPUSH Q6H PRN Patient's Own Medication [Ptom] Med 07/14/17 09:00 Active 0 each PO DAILY Sennosides [Senna] Med 07/13/17 06:53 Active 8.6 mg PO BID PRN Tolterodine [Detrol] Med 07/13/17 10:30 Active 1 mg PO DAILY PRN Vitamin B Complex with C [Super B With Vitamin C] Med 07/14/17 09:00 Active 1 cap PO DAILY ceFAZolin [Ancef] 2 gm Med 07/13/17 14:30 Active Premix Bag 1 bag IV Q8H diphenhydrAMINE [Benadryl] Med 07/13/17 07:20 Active 25 mg IVPUSH Q6H PRN rOPINIRole [Requip] Med 07/13/17 10:30 Active 0.5 mg PO DAILY PRN Antiembolic Hose [OM.PC] Per Unit Routine Oth 07/13/17 06:57 Ordered Ice Therapy [OM.PC] Per Unit Routine Oth 07/13/17 06:56 Ordered Pulse Oximetry Continuous Monitoring [OM.PC] Routine Oth 07/13/17 07:20 Active Sequential Compression Device [OM.PC] Per Unit Routine Oth 07/13/17 06:53 Ordered Resuscitation Status Routine Resus Stat 07/13/17 06:53 Ordered Medication Orders Aspirin (Ecotrin) 325 mg PO BID [facility] Bisacodyl (Dulcolax) 5 mg PO DAILY PRN PRN Reason: Constipation Cyclobenzaprine HCl (Flexeril) 10 mg PO TID PRN PRN Reason: Spasms Diphenhydramine HCl (Benadryl) 25 mg IVPUSH Q6H PRN PRN Reason: pruritis Docusate Sodium (Colace) 100 mg PO BID [facility] Last Admin: 07/13/17 20:13 Dose: 100 mg Famotidine (Pepcid) 20 mg PO Q12H [facility] Last Admin: 07/13/17 18:01 Dose: 20 mg Admin: 07/13/17 13:44 Dose: Not Given Cefazolin Sodium/Dextrose 2 gm (/ Premix) 50 mls @ 100 mls/hr IV Q8H [facility] Stop: 07/14/17 06:59 Last Admin: 07/14/17 00:32 Dose: 100 mls/hr Infusion: 07/13/17 14:17 Dose: 100 mls/hr Admin: 07/13/17 13:47 Dose: 100 mls/hr Ketorolac Tromethamine (Toradol) 15 mg IVPUSH Q6H PRN PRN Reason: Pain Levothyroxine Sodium (Synthroid) 50 mcg PO ACBRK [facility] Magnesium Hydroxide (Milk Of Magnesia) 30 ml PO BID PRN PRN Reason: Constipation Metoclopramide HCl (Reglan) 5 mg IVPUSH Q6H PRN PRN Reason: Nausea/Vomiting Last Admin: 07/13/17 17:08 Dose: 5 mg Morphine Sulfate (Morphine) 2 mg IVPUSH Q2H PRN PRN Reason: Breakthrough Pain Multivitamins (Thera) 1 each PO DAILY [facility] Last Admin: 07/13/17 13:59 Dose: Not Given Naloxone HCl (Narcan) 0.1 mg IVPUSH Q5M PRN PRN Reason: Oversedation Ondansetron HCl (Zofran) 4 mg IVPUSH Q6H PRN PRN Reason: Nausea/Vomiting Last Admin: 07/13/17 11:56 Dose: 4 mg Ondansetron HCl (Zofran) 4 mg IVPUSH ONETIME PRN PRN Reason: Nausea/Vomiting Oxycodone/Acetaminophen (Percocet 325-5 Mg) 1 - 2 tab PO Q4H PRN PRN Reason: Pain Last Admin: 07/14/17 00:33 Dose: 1 tab Admin: 07/13/17 18:01 Dose: 2 tab Admin: 07/13/17 13:46 Dose: 2 tab Ubidecarenone 30 Mg 0 each PO DAILY [facility] Ropinirole HCl (Requip) 0.5 mg PO DAILY PRN PRN Reason: RESTLESS LEGS Senna (Senna) 8.6 mg PO BID PRN PRN Reason: Constipation Tolterodine Tartrate (Detrol) 1 mg PO DAILY PRN PRN Reason: URGENCY Vitamin B Complex/Vitamin C (Super B With Vitamin C) 1 cap PO DAILY [facility] - Plan Plan (Free Text/Narrative):: 1. Hgb 11.8. 2. ASA 325mg PO BID. Frequent mobility, TEDs. 3. Outpatient therapy. 4. Discharge to home today. The pt's case was discussed with Dr. Le.
--- NOTE | 2017-07-14 06:57 | PCM.DCSUM1 ---
Discharge Summary - Hospital Course Brief History: Rebecca is a 62 yo female who underwent right TKA with Dr. Le on 07-13-2017. The procedure was completed under spinal anesthesia with MAC. The pt tolerated the procedure well and was admitted to the Medical-Surgical Unit. The pt received Ancef carlos-operatively. She participated in P.T. and O.T. and progressed well. She was allowed to WBAT and used a FWW for mobility. The pt's surgical wound was dressed with a Mepilex dressing and remained clean and dry. On POD#1, the pt was started on 325mg ASA BID for VTE prophylaxis. The pt used TEDs and SCDs also. On POD#1, the pt's hemoglobin was 11.8. Medical management was provided by the Hospitalist service and the pt 's hospital course was uneventful. On POD#1, the pt was deemed appropriate for discharge to home. - Discharge Data Discharge Date: 07/14/17 Discharge Disposition: Home, Self-Care 01 Condition: Good - Patient Summary/Data Consults: Consultations 07/13/17 06:52 OT Evaluation and Treatment [CONS] Routine PT Evaluation and Treatment [CONS] Routine 07/13/17 06:53 Consult to Physician [CONS] Routine - Patient Instructions Diet: Usual Diet as Tolerated Activity: Apply Ice, As Tolerated, Elevate Extremity, Full Weight Bearing Driving: Do Not Drive Showering/Bathing: May Shower Wound/Incision Care: Keep Operative Site/Wound Site Clean and Dry, Do NOT Change Dressing Notify Provider of: Fever, Increased Pain, Swelling and Redness, Drainage, Nausea and/or Vomiting Other/Special Instructions: Please get up and moving around every hour while awake. This helps to prevent blood clots. Please use your walker and have help with mobility as needed. Please take a 325mg ASPIRIN TWICE DAILY. This also helps to prevent blood clots. The aspirin is being used for blood clot prevention and not for pain management, so please do not miss a dose of the medication. You do NOT need to take an 81mg aspirin in addition to the two 325mg aspirin. At home, please complete the exercises that you learned during the Hospital stay. Schedule for physical therapy. Use the pain medication as needed. The medication may cause drowsiness and constipation. Contact your primary care provider for instructions if you are constipated. You may use a stool softener like docusate sodium or Colace 100mg twice daily and/or a laxative like Miralax daily for constipation. Increase your water and fiber intake while you are using the pain medication. Please try to WEAN from use of the pain medication as soon as able. Wear the JULEE hose during the day and you may remove these at night. Elevate the limb to decrease swelling. Place ice to the area often. Place a towel between your skin and the blue pad. Increase your protein intake while you are healing. If you have diabetes, please closely monitor your blood sugars and notify your primary care provider with abnormal values. Use the incentive spirometer often. Take deep breaths throughout the day. Please ensure you are not taking in more than 3000mg of acetaminophen or Tylenol from all sources per day. The pain pill has 325mg of acetaminophen or Tylenol in each pill. Call the Clinic with questions or concerns - [phone]. - Discharge Plan Prescriptions/Med Rec: Acetaminophen/oxyCODONE [Percocet 325-5 MG] 1 - 2 tab PO Q6H PRN #60 tablet PRN Reason: Pain Aspirin [Ecotrin] 325 mg PO BID #84 tab.ec Cyclobenzaprine [Flexeril] 10 mg PO TID PRN #40 tablet PRN Reason: Spasms Home Medications: Home Meds Multivitamin [Multi-Vitamin Daily] 1 tab PO DAILY 03/03/14 [History] Tolterodine [Detrol] 1 mg PO DAILY PRN 03/03/14 [History] Vitamin B Complex [B Complex] 1 tab PO DAILY 03/03/14 [History] Levothyroxine [Synthroid] 50 mcg PO DAILY 07/12/17 [History] Ubidecarenone [COQ-10] 30 mg PO DAILY 07/12/17 [History] rOPINIRole HCl [Requip] 0.5 mg PO DAILY PRN 07/12/17 [History] Acetaminophen/oxyCODONE [Percocet 325-5 MG] 1 - 2 tab PO Q6H PRN #60 tablet 03/20 [Rx] Aspirin [Ecotrin] 325 mg PO BID #84 tab.ec 07/13/17 [Rx] Bisacodyl [Dulcolax] 5 mg PO DAILY PRN tablet 07/13/17 [Rx] Cyclobenzaprine [Flexeril] 10 mg PO TID PRN #40 tablet 07/13/17 [Rx] Docusate Sodium [Colace] 100 mg PO BID #0 cap 07/13/17 [Rx] Famotidine [Pepcid] 20 mg PO Q12H tablet 07/13/17 [Rx] Magnesium Hydroxide [Milk of Magnesia] 30 ml PO BID PRN cup 07/13/17 [Rx] Sennosides [Senna] 8.6 mg PO BID PRN tablet 07/13/17 [Rx] Referrals: Shruti Velasquez PA-C [Physician Management Consultant] - - Patient Data Vitals - Most Recent: Last Vital Signs Temp 97.5 F 07/13/17 20:00 Pulse 51 L 07/13/17 20:00 Resp 14 07/13/17 20:00 BP 113/55 L 07/13/17 20:00 Pulse Ox 97 07/13/17 20:00 Weight - Most Recent: 226 lb 1.6 oz I&O - Last 24 hours: Intake & Output 07/13/17 07/13/17 07/14/17 14:59 22:59 06:59 Intake Total 600 1100 240 Output Total 275 2050 625 Balance 325 -950 -385 Lab Results - Last 24 hrs: Laboratory Results - last 24 hr 07/14/17 Range/Units 06:09 WBC 10.93 H (3.98-10.04) K/mm3 RBC 3.73 L (3.98-5.22) M/mm3 Hgb 11.8 (11.2-15.7) gm/L Hct 36.6 (34.1-44.9) % MCV 98.1 H (79.4-94.8) fl MCH 31.6 (25.6-32.2) pg MCHC 32.2 (32.2-35.5) g/dl RDW Std Deviation 46.4 H (36.4-46.3) fL Plt Count 176 L (182-369) K/mm3 MPV 11.3 (9.4-12.3) fl Med Orders - Current: Current Medications Aspirin (Ecotrin) 325 mg PO BID ALYSA Bisacodyl (Dulcolax) 5 mg PO DAILY PRN PRN Reason: Constipation Cyclobenzaprine HCl (Flexeril) 10 mg PO TID PRN PRN Reason: Spasms Diphenhydramine HCl (Benadryl) 25 mg IVPUSH Q6H PRN PRN Reason: pruritis Docusate Sodium (Colace) 100 mg PO BID [facility] Last Admin: 07/13/17 20:13 Dose: 100 mg Famotidine (Pepcid) 20 mg PO Q12H [facility] Last Admin: 07/13/17 18:01 Dose: 20 mg Cefazolin Sodium/Dextrose 2 gm (/ Premix) 50 mls @ 100 mls/hr IV Q8H [facility] Stop: 07/14/17 06:59 Last Admin: 07/14/17 00:32 Dose: 100 mls/hr Ketorolac Tromethamine (Toradol) 15 mg IVPUSH Q6H PRN PRN Reason: Pain Levothyroxine Sodium (Synthroid) 50 mcg PO ACBRK [facility] Magnesium Hydroxide (Milk Of Magnesia) 30 ml PO BID PRN PRN Reason: Constipation Metoclopramide HCl (Reglan) 5 mg IVPUSH Q6H PRN PRN Reason: Nausea/Vomiting Last Admin: 07/13/17 17:08 Dose: 5 mg Morphine Sulfate (Morphine) 2 mg IVPUSH Q2H PRN PRN Reason: Breakthrough Pain Multivitamins (Thera) 1 each PO DAILY [facility] Last Admin: 07/13/17 13:59 Dose: Not Given Naloxone HCl (Narcan) 0.1 mg IVPUSH Q5M PRN PRN Reason: Oversedation Ondansetron HCl (Zofran) 4 mg IVPUSH Q6H PRN PRN Reason: Nausea/Vomiting Last Admin: 07/13/17 11:56 Dose: 4 mg Ondansetron HCl (Zofran) 4 mg IVPUSH ONETIME PRN PRN Reason: Nausea/Vomiting Oxycodone/Acetaminophen (Percocet 325-5 Mg) 1 - 2 tab PO Q4H PRN PRN Reason: Pain Last Admin: 07/14/17 00:33 Dose: 1 tab Ubidecarenone 30 Mg 0 each PO DAILY [facility] Ropinirole HCl (Requip) 0.5 mg PO DAILY PRN PRN Reason: RESTLESS LEGS Senna (Senna) 8.6 mg PO BID PRN PRN Reason: Constipation Tolterodine Tartrate (Detrol) 1 mg PO DAILY PRN PRN Reason: URGENCY Vitamin B Complex/Vitamin C (Super B With Vitamin C) 1 cap PO DAILY ALYSA Discontinued Medications Acetaminophen (Tylenol) 975 mg PO ASDIRECTED ALYSA Stop: 07/13/17 12:00 Last Admin: 07/13/17 06:23 Dose: 975 mg Bupivacaine HCl (Sensorcaine-Mpf 0.75%) Confirm Administered Dose 60 ml .ROUTE .STK-MED ONE Stop: 07/13/17 06:26 Bupivacaine HCl (Marcaine 0.25%) Confirm Administered Dose 30 ml .ROUTE .STK- MED ONE Stop: 07/13/17 06:05 Last Admin: 07/13/17 08:12 Dose: 30 ml Cefazolin Sodium (Ancef) Confirm Administered Dose 2 gm .ROUTE .STK-MED ONE Stop: 07/13/17 06:26 Last Admin: 07/13/17 08:09 Dose: 2 gm Cefazolin Sodium (Ancef) Confirm Administered Dose 2 gm .ROUTE .STK-MED ONE Stop: 07/13/17 06:05 Morphine Sulfate 8 mg/Epinephrine HCl 0.3 mg/Cefuroxime Sodium 750 mg/Ketorolac Tromethamine 30 mg/Sodium Chloride 27.9 ml 0 mg .XX ONETIME ONE Stop: 07/13/17 07:46 Last Admin: 07/13/17 08:13 Dose: 788.3 mg Diphenhydramine HCl (Benadryl) 25 mg IVPUSH Q4H PRN PRN Reason: Nausea Ephedrine Sulfate (Ephedrine Sulfate) 5 mg IVPUSH ASDIRECTED PRN PRN Reason: Hypotension Epinephrine HCl (Adrenalin) Confirm Administered Dose 1 mg .ROUTE .STK-MED ONE Stop: 07/13/17 05:44 Fentanyl (Sublimaze) Confirm Administered Dose 100 mcg .ROUTE .STK-MED ONE Stop: 07/13/17 06:27 Fentanyl (Sublimaze) 50 mcg IVPUSH Q5M PRN PRN Reason: Pain Haloperidol Lactate (Haldol) 1 mg IVPUSH ONETIME ONE Stop: 07/13/17 07:21 Last Admin: 07/13/17 14:00 Dose: Not Given Hydromorphone HCl (Dilaudid) 0.5 mg IVPUSH ONETIME PRN PRN Reason: Pain Lactated Ringer's (Ringers, Lactated) 1,000 mls @ 125 mls/hr IV ASDIRECTED [facility] Stop: 07/13/17 23:00 Last Admin: 07/13/17 06:30 Dose: 125 mls/hr Lactated Ringer's (Ringers, Lactated) Confirm Administered Dose 1,000 mls @ as directed .ROUTE .STK-MED ONE Stop: 07/13/17 06:26 Cefazolin Sodium/Dextrose 2 gm (/ Premix) 50 mls @ 100 mls/hr IV Q8H [facility] Stop: 07/13/17 23:29 Last Admin: 07/13/17 14:00 Dose: Not Given Lidocaine HCl (Xylocaine-Mpf 1%) Confirm Administered Dose 2 mls @ as directed .ROUTE .STK-MED ONE Stop: 07/13/17 07:31 Lidocaine HCl (Xylocaine-Mpf 1%) Confirm Administered Dose 2 mls @ as directed .ROUTE .STK-MED ONE Stop: 07/13/17 07:31 Phenylephrine HCl 1 mg/ Sodium (Chloride) 10.1 mls @ 1 mls/sec IV TITRATE ALYSA; Protocol Lactated Ringer's (Ringers, Lactated) Confirm Administered Dose 1,000 mls @ as directed .ROUTE .STK-MED ONE Stop: 07/13/17 08:37 Iodine (Iodine 2% Mild Tincture) Confirm Administered Dose 30 ml .ROUTE .STK- MED ONE Stop: 07/13/17 06:05 Last Admin: 07/13/17 08:05 Dose: 18 ml Ketamine HCl (Ketalar) Confirm Administered Dose 500 mg .ROUTE .STK-MED ONE Stop: 07/13/17 06:27 Ketorolac Tromethamine (Toradol) Confirm Administered Dose 30 mg .ROUTE .STK- MED ONE Stop: 07/13/17 06:26 Lidocaine HCl (Xylocaine-Mpf 1%) Confirm Administered Dose 25 ml .ROUTE .STK- MED ONE Stop: 07/13/17 06:26 Lidocaine/Sodium Bicarbonate (Buffered Lidocaine 1% In Ns 8.4%) 0.25 ml IDERM ONETIME PRN PRN Reason: Prior to IV Start Stop: 07/13/17 18:00 Last Admin: 07/13/17 06:30 Dose: 0.25 ml Midazolam HCl (Versed 1 Mg/Ml) Confirm Administered Dose 2 mg .ROUTE .STK-MED ONE Stop: 07/13/17 06:27 Morphine Sulfate (Duramorph Pf) Confirm Administered Dose 10 mg .ROUTE .STK-MED ONE Stop: 07/13/17 06:28 Ondansetron HCl (Zofran) Confirm Administered Dose 4 mg .ROUTE .STK-MED ONE Stop: 07/13/17 06:26 Oxycodone HCl (Oxycontin) 10 mg PO ASDIRECTED [facility] Stop: 07/13/17 12:00 Last Admin: 07/13/17 06:22 Dose: 10 mg Phenylephrine HCl (Jeffrey-Synephrine) Confirm Administered Dose 10 mg .ROUTE .STK- MED ONE Stop: 07/13/17 06:26 Pregabalin (Lyrica) 50 mg PO ASDIRECTED [facility] Stop: 07/13/17 12:00 Last Admin: 07/13/17 06:22 Dose: 50 mg Propofol (Diprivan 20 Ml) Confirm Administered Dose 400 mg .ROUTE .STK-MED ONE Stop: 07/13/17 06:27 Propofol (Diprivan 20 Ml) Confirm Administered Dose 200 mg .ROUTE .STK-MED ONE Stop: 07/13/17 08:36 Ropivacaine (Naropin 0.5%) Confirm Administered Dose 30 ml .ROUTE .STK-MED ONE Stop: 07/13/17 05:44 Scopolamine (Transderm-Scop) 1.5 mg TRDERM ONETIME [facility] Stop: 07/13/17 18:00 Last Admin: 07/13/17 06:21 Dose: 1.5 mg Sodium Chloride (Saline Flush) 10 ml FLUSH ASDIRECTED PRN PRN Reason: Keep Vein Open Stop: 07/13/17 18:00 Tranexamic Acid (Cyklokapron) Confirm Administered Dose 1,000 mg .ROUTE .STK- MED ONE Stop: 07/13/17 06:05 Last Admin: 07/13/17 08:20 Dose: 1,000 mg Vancomycin HCl (Vancomycin) Confirm Administered Dose 1 gm .ROUTE .STK-MED ONE Stop: 07/13/17 06:05 Last Admin: 07/13/17 08:15 Dose: 1 gm
[2017-07-14] MEDS: Famotidine 20 MG Tab PO SCH (07:08)
[2017-07-14] MEDS: Levothyroxine 50 MCG Tab PO SCH ×2 (07:09→07:13)
[2017-07-14] MEDS: Multivitamins,Therapeutic Tab PO SCH (08:00)
[2017-07-14] MEDS: Docusate Sodium 100 MG Cap PO SCH (08:00)
[2017-07-14] MEDS ORDERED: Aspirin 325 MG Tab.EC PO SCH (09:00)
[2017-07-14] MEDS ORDERED: Vitamin B Complex With Vitamin C Cap PO SCH (09:00)
[2017-07-14] MEDS ORDERED: UBIDECARENONE 30 MG PO SCH (09:00)
--- NOTE | 2017-07-14 12:59 | PCM48HPAN ---
Post Anesthesia Note - EVALUATION WITHIN 48HRS OF ANESTHETIC Vital Signs in Normal Range: Yes Patient Participated in Evaluation: Yes Respiratory Function Stable: Yes Airway Patent: Yes Cardiovascular Function Stable: Yes Hydration Status Stable: Yes Pain Control Satisfactory: Yes Nausea and Vomiting Control Satisfactory: Yes Mental Status Recovered: Yes - COMMENTS/OBSERVATIONS Free Text/Narrative:: Patient stated she was quite nauseated yesterday and ended up with emesis x4. Patient also complained of pruritus. Stated her pain level was very well controlled (3/10) and rested well throughout the night. Doing well resting in bed.
[2017-07-14 17:50] VITALS: BP 110/77
--- NOTE | 2017-07-18 07:00 | PCM.OPNOTE ---
- General Post-Op/Procedure Note Date of Surgery/Procedure: 07/13/17 Operative Procedure(s): right total knee arthroplasty Pre Op Diagnosis: right knee osteoarthrosis Post-Op Diagnosis: Same Anesthesia Technique: Local, MAC, Spinal Primary Surgeon: Capo Le Anesthesia Provider: Shirin Dye [employer] Division Chair: Shruti Velasquez Human[employer] Division Chair: Debbie Acuna EBL in mLs: 250 Complications: None Condition: Good
--- NOTE | 2017-07-18 07:58 | OR ---
DATE OF OPERATION: 07/13/2017 SURGEON: Capo Le MD OPERATION PERFORMED: Right total knee arthroplasty. PREOPERATIVE DIAGNOSIS: Right total knee osteoarthrosis. POSTOPERATIVE DIAGNOSIS: Right total knee osteoarthrosis. ANESTHESIA: Local MAC with spinal. ANESTHESIA PROVIDER: Shirin Dye CRNA. ASSISTANTS: Shruti Velasquez PA-C and Debbie Acuna LPN. ESTIMATED BLOOD LOSS: 250 mL COMPLICATIONS: None. CONDITION: Stable. IMPLANTS: 1. Ishmael size 4 press-fit femur. 2. Ishmael size 3 press-fit tibial base plate. 3. Garland size 3, 9 mm CS polyethylene insert. 4. Ishmael size 29 x 9 mm press-fit patella. DESCRIPTION OF PROCEDURE: The patient was identified in the preop holding area. Proper site was marked and identified by the surgeon. The patient was taken back to the operating theater. After adequate anesthesia, the patient's right lower extremity had a nonsterile tourniquet applied and it was then sterilely prepped and draped in the usual sterile fashion. OR timeout was performed. The patient received 2 g IV Ancef. At this time, right lower extremity was exsanguinated. Tourniquet was insufflated to 300 mmHg. Standard medial parapatellar incision was made. Medial parapatellar arthrotomy was created. Deep fibers of the MCL were raised and anterior fat pad was resected. At this time, attention was turned to the patella. Patella measured 22, and it was resected to a 13 for a 29 x 9 mm patella and that 8 mm was taken off the distal femur. Drill holes were then drilled and found to be in adequate position. The drill was then drilled in the distal femur and the intramedullary distal femoral cutting guide was then placed. 8 mm was resected off the distal femur and was found to be an adequate resection. Sizing guide was placed. It was found to be a size 4 femur that was shown on the implant record at the beginning of this dictation. The drill holes were drilled for the epicondylar axis using Whitesides line and epicondyles as reference. At this time, the 4-in-1 cutting block was placed. An anterior posterior and anterior and posterior chamfer cuts were then completed. The correct size box cut was then placed and the box cut was completed and found to be an adequate resection. Attention was turned to the tibia. The posterior medial lateral retractors were placed. The extramedullary tibial guide was placed. It was placed in the old footprint of the ACL. It was aligned with the center of the ankle and 0 degrees of slope, 9 mm was then resected off the unaffected lateral side. There was found to be an acceptable reduction. At this time, posterior osteophytes were removed along with medial and lateral meniscus. A trial implant was placed with a correct sized tibia that was mentioned at the beginning of the dictation. A polyethylene was then placed. The patient's knee was brought through range of motion. The patella was tracking centrally and was stable to varus and valgus stress. Alignment was found to be roughly at 0 degrees. The tibia was stamped and drilled in proper rotation. The universal tibial base plate was impacted into place. Next, the size 4 femur was press- fit into place and the 3, 9 mm CS polyethylene was placed. The patient's knee was brought into full extension. The patella was then press-fit in place at this time. Tourniquet was deflated. One liter dilute Betadine solution was irrigated through the knee along with 3 L of pulse lavage irrigation with Ancef. Periarticular injection was then completed. The patient's knee was brought through a range of motion. Knee was found to be stable to varus valgus stress, the patella was tracking centrally with full range of motion. At this time, a #2 barbed suture was used for closure of the medial parapatellar arthrotomy. Topical tranexamic acid was placed. 2-0 Vicryl was used subcutaneously, a running 3-0 Monocryl was used subcuticularly. The patient tolerated the procedure well and was sent to the PACU in stable condition. [facility] /[id number] LETITIA
== END 2017-07-14 17:15 | disposition home or self-care (01) | DRG 470 ==
LOC: JD.SDS 05:54 → JD.MS 05:55 → JD.SDS 15:28 → JD.MS 15:29
PROVIDERS: ADMIT Orthopaedic Surgery; ATTEND Orthopaedic Surgery
PROC: 0SRC0JA Replacement of Right Knee Joint with Synthetic Substitute, Uncemented, Open Approach (ICD-10-PCS; principal; 2017-07-13)
PROC: 3E0T3BZ Introduction of Anesthetic Agent into Peripheral Nerves and Plexi, Percutaneous Approach (ICD-10-PCS; 2017-07-13)
DX: M17.0 Bilateral primary osteoarthritis of knee (principal); Z68.41 Body mass index [BMI] 40.0-44.9, adult; M25.761 Osteophyte, right knee; E03.9 Hypothyroidism, unspecified; E55.9 Vitamin D deficiency, unspecified; G47.33 Obstructive sleep apnea (adult) (pediatric); G25.81 Restless legs syndrome; E66.01 Morbid (severe) obesity due to excess calories; R32 Unspecified urinary incontinence; E78.5 Hyperlipidemia, unspecified; F32.9 Major depressive disorder, single episode, unspecified; R42 Dizziness and giddiness; R00.1 Bradycardia, unspecified; R11.2 Nausea with vomiting, unspecified; L29.9 Pruritus, unspecified; Z79.899 Other long term (current) drug therapy; Z90.710 Acquired absence of both cervix and uterus; Z79.82 Long term (current) use of aspirin
CPT/HCPCS: 01402; 36415; 64450; 73560-26-RT; 73560-RT; 80053; 85027; 87641; 94762; 97110-GP; 97116-GP; 97161-GP; 97165-GO; 97535-GO; A9270; A9270-GY; C1776; J0171; J0690; J0697; J1885; J2250; J2270; J2370; J2405; J2704; J2765; J2795; J3010; J3370; J3490; J7120

== ENCOUNTER 2017-11-23 06:46 | Inpatient (IN) | payer OTHER ==
[~2017-11-23 06:46] MED LIST changes: +Acetaminophen 325 MG Tab PO SCH; -EPINEPHrine 1 MG/ML SDV ONE; -Lactated Ringers 1,000 ML IV SCH; +Pregabalin 25 MG Cap PO SCH; -Ropivacaine 0.5% 5 MG/ML 30 ML SDV ONE; -Scopolamine 1.5 MG Transdermal Patch TRDERM SCH; +oxyCODONE ER 10 MG TAB.ER PO SCH
[2017-11-23] MEDS ORDERED: Ropivacaine 0.5% 5 MG/ML 30 ML SDV ONE (07:22)
[2017-11-23] MEDS ORDERED: EPINEPHrine 1 MG/ML SDV ONE (07:22)
[2017-11-23] MEDS: Lactated Ringers 1,000 ML IV SCH ×2 (07:25→11:15)
--- NOTE | 2017-11-23 07:25 | PCM.PREANE ---
Preanesthetic Assessment - Anesthesia/Transfusion/Family Hx Anesthesia History: Prior Anesthesia Without Reaction Transfusion History: No Prior Transfusion(s) Intubation History: Unknown - Review of Systems General: No Symptoms Pulmonary: No Symptoms Cardiovascular: No Symptoms Gastrointestinal: No Symptoms Neurological: No Symptoms Other: Reports: None - Physical Assessment NPO Status Date: 11/22/17 NPO Status Time: 21:30 Pulse: 65 O2 Sat by Pulse Oximetry: 94 Respiratory Rate: 16 Blood Pressure: 122/67 Temperature: 97.6 F ASA Class: 2 Mental Status: Alert & Oriented x3 Airway Class: Mallampati = 3 Dentition: Reports: Normal Dentition Thyro-Mental Finger Breadths: 3 Mouth Opening Finger Breadths: 3 ROM/Head Extension: Full Lungs: Clear to Auscultation - Lab Values: Laboratory Last Values MRSA (PCR) Negative 11/03/17 10:11 - Imaging/EKG Impressions: Sinus arsen - Allergies Allergies/Adverse Reactions: Allergies Allergy/AdvReac Type Severity Reaction Status Date / Time No Known Allergies Allergy Verified 11/22/17 14:05 - Acknowledgements Anesthesia Type Planned: Spinal, Regional Block (Left adductor canal block) Pt an Appropriate Candidate for the Planned Anesthesia: Yes Alternatives and Risks of Anesthesia Discussed w Pt/Guardian: Yes Pt/Guardian Understands and Agrees with Anesthesia Plan: Yes PreAnesthesia Questionnaire HEENT History: Reports: Impaired Vision, Other (See Below) Other HEENT History: wears contact Cardiovascular History: Reports: High Cholesterol Respiratory History: Reports: Sleep Apnea Genitourinary History: Reports: Urinary Incontinence Musculoskeletal History: Reports: Osteoarthritis, Other (See Below) Other Musculoskeletal History: restless leg syndrome Neurological History: Reports: Vertigo Psychiatric History: Reports: Depression Other Psychiatric History: claustophobic Endocrine/Metabolic History: Reports: Hypothyroidism, Obesity/BMI 30+, Vitamin D Deficiency Dermatologic History: Reports: Other (See Below) Other Dermatologic History: lesion to face - Infectious Disease History Infectious Disease History: Reports: Chicken Pox, Shingles - Past Surgical History HEENT Surgical History: Reports: Tonsillectomy GI Surgical History: Reports: Colonoscopy Female Surgical History: Reports: D&C, Hysterectomy Neurological Surgical History: Reports: Laminectomy Musculoskeletal Surgical History: Reports: Knee Replacement (Right knee, done ) Dermatological Surgical History: Reports: Skin Biopsy - SUBSTANCE USE Smoking Status *Q: Never Smoker Second Hand Smoke Exposure: No Recreational Drug Use History: No - HOME MEDS Home Medications: Home Meds Multivitamin [Multi-Vitamin Daily] 1 tab PO DAILY 03/03/14 [History] Tolterodine [Detrol] 1 mg PO DAILY PRN 03/03/14 [History] Vitamin B Complex [B Complex] 1 tab PO DAILY 03/03/14 [History] Ubidecarenone [COQ-10] 30 mg PO DAILY 07/12/17 [History] rOPINIRole HCl [Requip] 0.5 mg PO DAILY PRN 07/12/17 [History] Ascorbic Acid [Vitamin C] 500 mg PO BID 11/22/17 [History] Aspirin [Children's Aspirin] 81 mg PO DAILY 11/22/17 [History] Beta-Carotene(A) w/C & E/Min [Prosight] 1 tab PO DAILY 11/22/17 [History] Calcium Carbonate/Vitamin D3 [Calcium 600 + Vit D 400 Softgl] 1 tab PO DAILY [History] Cholecalciferol (Vitamin D3) [Vitamin D3] 2,000 unit PO BID 11/22/17 [History] Fish Oil/[place]-3 Fatty Acids [Fish Oil 1,000 MG] 1 gm PO DAILY 11/22/17 [History ] Gluc 2KCl/Chondr/[place] Hy/Hy Ac [Glucosamine & Chondroitin Cap] 1 tab PO DAILY [History] Ibuprofen [Advil] 1 - 3 tab PO TID PRN 11/22/17 [History] Levothyroxine [Synthroid] 50 mcg PO DAILY 11/22/17 [History] Magnesium Oxide [Magnesium] 500 mg PO DAILY 11/22/17 [History] - CURRENT (IN HOUSE) MEDS Current Meds: Current Medications Acetaminophen (Tylenol) 975 mg PO ASDIRECTED ALYSA Stop: 11/23/17 16:00 Lactated Ringer's (Ringers, Lactated) 1,000 mls @ 125 mls/hr IV ASDIRECTED ALYSA Stop: 11/23/17 23:00 Lidocaine/Sodium Bicarbonate (Buffered Lidocaine 1% In Ns 8.4%) 0.25 ml IDERM ONETIME PRN PRN Reason: Prior to IV Start Stop: 11/23/17 18:00 Oxycodone HCl (Oxycontin) 10 mg PO ONETIME ALYSA Stop: 11/23/17 16:00 Pregabalin (Lyrica) 50 mg PO ONETIME ALYSA Stop: 11/23/17 16:00 Sodium Chloride (Saline Flush) 10 ml FLUSH ASDIRECTED PRN PRN Reason: Keep Vein Open Stop: 11/23/17 18:00
[2017-11-23] MEDS ORDERED: Cyclobenzaprine 10 MG Tab PO PRN (07:29)
[2017-11-23] MEDS ORDERED: Ketorolac 15 MG/ML SDV IVPUSH PRN (07:29)
[2017-11-23] MEDS ORDERED: Ondansetron 4 MG/2 ML SDV IVPUSH PRN (07:30)
[2017-11-23] MEDS ORDERED: Morphine 2 MG/ML Syringe IVPUSH PRN (07:30)
[2017-11-23] MEDS ORDERED: Magnesium Hydroxide 400 MG/5 ML Susp 30 ML Cup PO PRN (07:30)
[2017-11-23] MEDS ORDERED: Sennosides 8.6 MG Tab PO PRN (07:30)
[2017-11-23] MEDS ORDERED: Naloxone 0.4 MG/ML SDV IVPUSH PRN (07:30)
[2017-11-23] MEDS ORDERED: Bisacodyl 5 MG Tab PO PRN (07:30)
[2017-11-23] MEDS ORDERED: Docusate Sodium 100 MG Cap PO PRN (07:30)
[2017-11-23] MEDS ORDERED: Scopolamine 1.5 MG Transdermal Patch TOP ONE (07:42)
[2017-11-23] MEDS ORDERED: Propofol 200 MG/20 ML SDV ONE ×2 (07:55→09:29)
[2017-11-23] MEDS ORDERED: Midazolam 1 MG/ML 2 ML SDV ONE (07:56)
[2017-11-23] MEDS ORDERED: Bupivacaine 0.75% 30 ML SDV ONE (08:08)
[2017-11-23] MEDS ORDERED: Bupivacaine 0.75%/D5W 2 ML Amp ONE (08:10)
[2017-11-23] MEDS: Iodine/Sodium Iodide 2% Tincture 30 ML Bottle ONE ×2 (09:17→09:33)
[2017-11-23] MEDS: ceFAZolin 1 GM Vial ONE ×2 (09:18→09:40)
[2017-11-23] MEDS: Bupivacaine 0.25% 30 ML SDV ONE ×2 (09:18→09:42)
[2017-11-23] MEDS: Morphine 8 MG, EPINEPHrine 0.3 MG, Cefuroxime 750 MG, Ketorolac 30 MG, Sodium Chloride ... ONE ×10 (09:19→09:42)
[2017-11-23] MEDS: Vancomycin 1 GM SDV ONE ×2 (09:19→09:43)
[2017-11-23] MEDS ORDERED: rOPINIRole 0.25 MG Tab PO PRN (10:25)
[2017-11-23] MEDS ORDERED: Trospium 20 MG Tab PO PRN (10:25)
--- NOTE | 2017-11-23 10:32 | PCM.POSTAN ---
POST ANESTHESIA ASSESSMENT - MENTAL STATUS Mental Status: Alert, Oriented - VITAL SIGNS Pulse Rate: 77 SaO2: 95 Resp Rate: 10 Blood Pressure: 88/48 Temperature: 98.2 F - RESPIRATORY Respiratory Status: Respiratory Rate WNL, Airway Patent, O2 Saturation Stable, Supplemental Oxygen - CARDIOVASCULAR CV Status: Pulse Rate WNL, Low Blood Pressure (Fluid bolus ordered) - GASTROINTESTINAL GI Status: No Symptoms - PAIN Pain Score: 0 - POST OP HYDRATION Hydration Status: Adequate & Stable
--- NOTE | 2017-11-23 12:01 | CR ---
Left knee: AP and lateral views of the left knee were obtained. Comparison: No prior left knee exam. Knee prosthesis is seen. Components are aligned. Soft tissue air is noted from the surgical procedure. Underlying bony structures are intact. Impression: 1. Satisfactory appearance of recently placed left knee prosthesis. Diagnostic code #2
[2017-11-23] MEDS ORDERED: Lactated Ringers 1,000 ML ONE (12:41)
[2017-11-23] MEDS: ceFAZolin 2 GM in Premix Bag 1 BAG IV SCH (15:59)
--- NOTE | 2017-11-23 16:15 | PCM.CONS ---
H&P History of Present Illness - General Date of Service: 11/23/17 Admit Problem/Dx: Admission Diagnosis/Problem Admission Diagnosis/Problem Osteoarthritis of knee Source of Information: Patient, Old Records, Provider, RN, RN Notes Reviewed, Other (surgical notes ) History Limitations: Reports: No Limitations - History of Present Illness Initial Comments - Free Text/Narative: Rebecca Sanchez is a 62 yo female patient of Dr. Le who is post-operative day 0 of Left TKA. Hospital medicine was consulted for post-operative medical care. At this time she is resting comfortably in bed. Pain is controlled. She denies any shortness of breath, palpitations, nausea, or vomiting. She does have some pleuritic chest pain, worse with inspiration and similar to her last surgery. She carries a history of: HLD, Sleep Apnea, Urinary incontinence, Osteoarthritis , Restless leg syndrome, Vertigo, Depression, Hypothyroidism, Obesity, Vitmain D deficiency. She was never a smoker. She is a full code. Her primary care provider is Jessa Velasco PA-C. Left Knee Pain Score (Numeric/FACES): 6 - Related Data Allergies/Adverse Reactions: Allergies Allergy/AdvReac Type Severity Reaction Status Date / Time No Known Allergies Allergy Verified 11/23/17 11:58 Home Medications: Home Meds Multivitamin [Multi-Vitamin Daily] 1 tab PO DAILY 03/03/14 [History] Tolterodine [Detrol] 1 mg PO DAILY PRN 03/03/14 [History] Vitamin B Complex [B Complex] 1 tab PO DAILY 03/03/14 [History] Ubidecarenone [COQ-10] 30 mg PO DAILY 07/12/17 [History] rOPINIRole HCl [Requip] 0.5 mg PO DAILY PRN 07/12/17 [History] Ascorbic Acid [Vitamin C] 500 mg PO BID 11/22/17 [History] Aspirin [Children's Aspirin] 81 mg PO DAILY 11/22/17 [History] Beta-Carotene(A) w/C & E/Min [Prosight] 1 tab PO DAILY 11/22/17 [History] Calcium Carbonate/Vitamin D3 [Calcium 600 + Vit D 400 Softgl] 1 tab PO DAILY [History] Cholecalciferol (Vitamin D3) [Vitamin D3] 2,000 unit PO BID 11/22/17 [History] Fish Oil/[place]-3 Fatty Acids [Fish Oil 1,000 MG] 1 gm PO DAILY 11/22/17 [History ] Gluc 2KCl/Chondr/[place] Hy/Hy Ac [Glucosamine & Chondroitin Cap] 1 tab PO DAILY [History] Ibuprofen [Advil] 1 - 3 tab PO TID PRN 11/22/17 [History] Levothyroxine [Synthroid] 50 mcg PO DAILY 11/22/17 [History] Magnesium Oxide [Magnesium] 500 mg PO DAILY 11/22/17 [History] Past Medical History HEENT History: Reports: Impaired Vision, Other (See Below) Other HEENT History: wears contact Cardiovascular History: Reports: High Cholesterol Respiratory History: Reports: Sleep Apnea Gastrointestinal History: Reports: Colon Polyp, Hemorrhoids Genitourinary History: Reports: Urinary Incontinence, Other (See Below) Other Genitourinary History: gallstones noted on prior assessment MYCOLOGIST History: Reports: Musculoskeletal History: Reports: Osteoarthritis, Other (See Below) Other Musculoskeletal History: restless leg syndrome Neurological History: Reports: Vertigo Psychiatric History: Reports: Depression Other Psychiatric History: claustophobic Endocrine/Metabolic History: Reports: Hypothyroidism, Obesity/BMI 30+, Vitamin D Deficiency Hematologic History: Reports: None Immunologic History: Reports: None Oncologic (Cancer) History: Reports: None Dermatologic History: Reports: Other (See Below) Other Dermatologic History: lesion to face - Infectious Disease History Infectious Disease History: Reports: Chicken Pox, Shingles - Past Surgical History Head Surgeries/Procedures: Reports: None HEENT Surgical History: Reports: Tonsillectomy Cardiovascular Surgical History: Reports: None Respiratory Surgical History: Reports: None GI Surgical History: Reports: Colonoscopy Female Surgical History: Reports: D&C, Hysterectomy Endocrine Surgical History: Reports: None Neurological Surgical History: Reports: Laminectomy Musculoskeletal Surgical History: Reports: Knee Replacement Other Musculoskeletal Surgeries/Procedures:: neuroma in right foot Dermatological Surgical History: Reports: Skin Biopsy Social & Family History - Family History Family Medical History: Noncontributory - Tobacco Use Smoking Status *Q: Never Smoker Second Hand Smoke Exposure: No - Caffeine Use Caffeine Use: Reports: Coffee, Soda Other Caffeine Use: 1 cup of coffee/day and then 1 t 2 diet soda cokes a day - Alcohol Use Days Per Week of Alcohol Use: 1 Number of Drinks Per Day: 2 Total Drinks Per Week: 2 - Recreational Drug Use Recreational Drug Use: No H&P Review of Systems - Review of Systems: Review Of Systems: See Below General: Reports: No Symptoms HEENT: Reports: No Symptoms Pulmonary: Reports: Pleuritic Chest Pain (mild - similar episode last surgery. ) Cardiovascular: Reports: No Symptoms Gastrointestinal: Reports: No Symptoms Genitourinary: Reports: No Symptoms Musculoskeletal: Reports: Leg Pain Skin: Reports: No Symptoms Psychiatric: Reports: No Symptoms Neurological: Reports: No Symptoms Hematologic/Lymphatic: Reports: No Symptoms Immunologic: Reports: No Symptoms Exam - Exam Exam: See Below - Vital Signs Vital Signs: Last Vital Signs Temp 98.2 F 11/23/17 11:50 Pulse 54 L 11/23/17 16:02 Resp 20 11/23/17 11:50 BP 108/64 11/23/17 16:02 Pulse Ox 97 11/23/17 16:02 Weight: 211 lb - Exam Quality Assessment: DVT Prophylaxis General: Alert, Oriented, Cooperative. No: Mild Distress HEENT: Conjunctiva Clear, EACs Clear, EOMI, Hearing Intact, Mucosa Moist & [place] , Posterior Pharynx Clear, TMs Clear, PERRLA Neck: Supple, Trachea Midline Lungs: Clear to Auscultation, Normal Respiratory Effort Cardiovascular: Regular Rate, Regular Rhythm GI/Abdominal Exam: Normal Bowel Sounds, Soft, Non-Tender, No Organomegaly, No Distention (Female) Exam: Deferred Rectal (Female) Exam: Deferred Back Exam: Normal Inspection, Full Range of Motion Extremities: No Pedal Edema, Normal Capillary Refill, Leg Pain, Limited Range of Motion, Other (ARAMIS wrap on left leg. Bandage is dry and intact. Cooling pack in place. ) Peripheral Pulses: 2+: Radial (L), Radial (R), Dorsalis Pedis (L), Dorsalis Pedis (R) Skin: Warm, Dry, Intact Neurological: Cranial Nerves Intact (Grossly) Neuro Extensive - Mental Status: Alert, Oriented x3, Normal Mood/Affect, Normal Cognition, Memory Intact Psychiatric: Alert, Normal Affect, Normal Mood Consult PN Assessment/Plan POD#: 0 Procedures: Procedures ASSAY OF CK (CPK) (02/17/15) ASSAY OF GONADOTROPIN (FSH) (01/13/14) ASSAY OF GONADOTROPIN (LH) (01/13/14) ASSAY OF TROPONIN QUANT (07/21/17) BLOOD TYPING SEROLOGIC ABO (02/17/15) BLOOD TYPING SEROLOGIC RH(D) (02/17/15) BONE IMAGING LIMITED AREA (02/01/16) C-REACTIVE PROTEIN (07/21/17) COMP SCREEN MAMMOGRAM ADD-ON (03/02/15) COMPLETE CBC AUTOMATED (02/17/15) COMPLETE CBC W/AUTO DIFF WBC (07/21/17) COMPREHEN METABOLIC PANEL (07/21/17) CT ANGIOGRAPHY CHEST (07/21/17) DXA BONE DENSITY AXIAL (03/02/15) ELECTROCARDIOGRAM TRACING (03/04/14) FIBRIN DEGRADATION QUANT (07/21/17) HYSTEROSCOPY BIOPSY (03/04/14) RBC ANTIBODY SCREEN (02/17/15) REPAIR BLADDER DEFECT (02/17/15) ROUTINE VENIPUNCTURE (07/21/17) TISSUE EXAM BY PATHOLOGIST (02/17/15) TISSUE EXAM BY PATHOLOGIST (03/04/14) URINALYSIS AUTO W/O SCOPE (02/17/14) US EXAM PELVIC COMPLETE (12/10/13) VAG HYST INCLUDING T/O (02/17/15) (1) HLD (hyperlipidemia) SNOMED Code(s): 75690444 Code(s): E78.5 - HYPERLIPIDEMIA, UNSPECIFIED Priority: Low Current Visit : No Qualifiers: Hyperlipidemia type: unspecified Qualified Code(s): E78.5 - Hyperlipidemia , unspecified (2) Hypothyroidism SNOMED Code(s): 06778141 Code(s): E03.9 - HYPOTHYROIDISM, UNSPECIFIED Priority: Low Current Visit : No Qualifiers: Hypothyroidism type: unspecified Qualified Code(s): E03.9 - Hypothyroidism , unspecified (3) Incontinence SNOMED Code(s): 98921688 Code(s): R32 - UNSPECIFIED URINARY INCONTINENCE Priority: Low Current Visit: No Qualifiers: Incontinence type: urinary Urinary Incontinence type: unspecified incontinence Qualified Code(s): R32 - Unspecified urinary incontinence (4) Osteoarthritis SNOMED Code(s): 488492777 Code(s): M19.90 - UNSPECIFIED OSTEOARTHRITIS, UNSPECIFIED SITE Priority: High Current Visit: No Qualifiers: Osteoarthritis location: knee Osteoarthritis type: primary Laterality: right Qualified Code(s): M17.11 - Unilateral primary osteoarthritis, right knee (5) Other specified depressive episodes SNOMED Code(s): 16906226 Code(s): F32.89 - OTHER SPECIFIED DEPRESSIVE EPISODES Priority: Low Current Visit: No (6) RLS (restless legs syndrome) SNOMED Code(s): 21435492 Code(s): G25.81 - RESTLESS LEGS SYNDROME Priority: Low Current Visit: No (7) S/P total knee arthroplasty SNOMED Code(s): 9140605439231, 368876988, 0001492426651 Code(s): Z96.659 - PRESENCE OF UNSPECIFIED ARTIFICIAL KNEE JOINT Priority: High Current Visit: No Qualifiers: Laterality: left Qualified Code(s): Z96.652 - Presence of left artificial knee joint (8) Sleep apnea SNOMED Code(s): 95354564 Code(s): G47.30 - SLEEP APNEA, UNSPECIFIED Priority: Medium Current Visit : No Qualifiers: Sleep apnea type: unspecified type Qualified Code(s): G47.30 - Sleep apnea , unspecified (9) Vertigo SNOMED Code(s): 881031971 Code(s): R42 - DIZZINESS AND GIDDINESS Priority: Low Current Visit: No Problem List Initiated/Reviewed/Updated: Yes Plan: I/P: Acute: S/P left total knee arthroplasty - post-operative day 0 -DVT prophylaxis and pain management per primary care team -PT/OT -IS/RT -Monitor oxygen saturation -Titrate oxygen as needed -Vital signs stable -Monitor labs -Pre-operative Hgb was 14.0 -Pre-operative GFR was 56 Osteoarthritis of left knee -Pain management per primary care team Chronic: HLD Sleep Apnea Urinary incontinence Osteoarthritis Restless leg syndrome Vertigo Depression Hypothyroidism Obesity Vitmain D deficiency Plan: CM for discharge planning GI prophylaxis Home medications as indicated Other orders as listed above Routine AM labs She is a full code. Her PCP is Jessa Velasco PA-C Thank you for allowing us to participate in the care of this patient!! Requesting Provider: Dr. Le Date Consult Requested: 11/23/17 Reason for Consult: Post-operative medical care Patient History Reviewed: Yes Admission H&P Reviewed: Yes Time Spent (in minutes): 40
--- NOTE | 2017-11-23 16:43 | PCM.SN ---
- Free Text/Narrative Note: Left selective femoral nerve block at the adductor canal for post-procedure pain control Time Out: 1058 Start: 1058 End: 1106 Chart reviewed. Consent signed. Questions answered. Appropriate monitors applied. Time out performed. Left mid-shaft femur evaluated with ultrasound. Scanning medially femur, I was able to identify the femoral artery in the adductor canal. The saphenous nerve was lateral to the artery. The skin was prepped lateral to the ultrasound probe with chlorahexadine. Skin localized with 3mL of 1% lidocaine. The 21ga 4 insulated block needle was inserted under direct ultrasound guidance into the adductor canal. 20mL of 0.5% ropivacaine with 1:200,000 epinephrine was injected cirmcumferentially about the nerve with intermittent negative aspiration every 5mL. Patient tolerated the procedure well. See pictures on progress note and vital signs on nurses notes. Block completed postoperatively. Jerry Gore, [employer]
[2017-11-23] MEDS: Cholecalciferol (Vitamin D3) 1,000 Unit Tab PO SCH (20:48)
[2017-11-23] MEDS: Famotidine 20 MG Tab PO SCH (20:48)
[2017-11-23] MEDS: Docusate Sodium 100 MG Cap PO SCH (20:48)
[2017-11-23] MEDS: Acetaminophen/oxyCODONE 325-5 MG Tab PO PRN (20:49)
[2017-11-24] MEDS: ceFAZolin 2 GM in Premix Bag 1 BAG IV SCH ×2 (00:21→09:01)
[2017-11-24] MEDS ORDERED: Levothyroxine 50 MCG Tab PO SCH (06:00)
[2017-11-24] MEDS: Acetaminophen/oxyCODONE 325-5 MG Tab PO PRN ×3 (06:05→16:33)
--- NOTE | 2017-11-24 06:23 | PCM.PN ---
- General Info Date of Service: 11/24/17 Admission Dx/Problem (Free Text): Admission Diagnosis/Problem Admission Diagnosis/Problem Osteoarthritis of knee Subjective Update: In to see Rebecca. She is doing very well and has been up working with therapies. She has no concerns. No nursing concerns. Functional Status: Reports: Pain Controlled, Tolerating Diet, Ambulating, Urinating, Incentive Spirometry. Denies: New Symptoms - Review of Systems General: Reports: No Symptoms HEENT: Reports: No Symptoms Pulmonary: Reports: No Symptoms Cardiovascular: Reports: No Symptoms Gastrointestinal: Reports: No Symptoms Genitourinary: Reports: No Symptoms Musculoskeletal: Reports: Leg Pain Skin: Reports: No Symptoms Neurological: Reports: No Symptoms Psychiatric: Reports: No Symptoms - Patient Data Vitals - Most Recent: Last Vital Signs Temp 98.4 F 11/24/17 06:10 Pulse 79 11/24/17 06:10 Resp 18 11/24/17 06:10 BP 119/52 L 11/24/17 06:10 Pulse Ox 99 11/24/17 06:10 Weight - Most Recent: 219 lb 9.6 oz I&O - Last 24 Hours: Intake & Output 11/23/17 11/23/17 11/24/17 14:59 22:59 06:59 Intake Total 1000 1060 Output Total 450 200 Balance 550 860 Med Orders - Current: Current Medications Aspirin (Ecotrin) 325 mg PO BID [facility] Bisacodyl (Dulcolax) 5 mg PO DAILY PRN PRN Reason: Constipation Calcium Carbonate (Calcium Carbonate/Vitamin D 600 Mg-200 Unit) 1 tab PO DAILY [facility] Cholecalciferol (Vitamin D3) 2,000 units PO BID [facility] Last Admin: 11/23/17 20:48 Dose: 2,000 units Cyclobenzaprine HCl (Flexeril) 10 mg PO TID PRN PRN Reason: Spasms Docusate Sodium (Colace) 100 mg PO BID [facility] Last Admin: 11/23/17 20:48 Dose: 100 mg Famotidine (Pepcid) 20 mg PO Q12H [facility] Last Admin: 11/23/17 20:48 Dose: 20 mg Cefazolin Sodium/Dextrose 2 gm (/ Premix) 50 mls @ 100 mls/hr IV Q8H [facility] Stop: 11/24/17 08:29 Last Admin: 11/24/17 00:21 Dose: 100 mls/hr Ketorolac Tromethamine (Toradol) 15 mg IVPUSH Q6H PRN PRN Reason: Pain Last Admin: 11/23/17 15:34 Dose: 15 mg Levothyroxine Sodium (Synthroid) 50 mcg PO ACBREAKFAST [facility] Last Admin: 11/24/17 06:05 Dose: 50 mcg Magnesium Hydroxide (Milk Of Magnesia) 30 ml PO BID PRN PRN Reason: Constipation Magnesium Oxide (Magnesium Oxide) 400 mg PO DAILY [facility] Miscellaneous Information (Remove Patch) 0 ea TRDERM ONETIME ONE Stop: 11/26/17 08:01 Morphine Sulfate (Morphine) 2 mg IVPUSH Q2H PRN PRN Reason: Breakthrough Pain Multivitamins (Thera) 1 each PO DAILY [facility] Naloxone HCl (Narcan) 0.1 mg IVPUSH Q5M PRN PRN Reason: Oversedation Ondansetron HCl (Zofran) 4 mg IVPUSH Q6H PRN PRN Reason: Nausea/Vomiting Oxycodone/Acetaminophen (Percocet 325-5 Mg) 1 - 2 tab PO Q4H PRN PRN Reason: Pain Last Admin: 11/24/17 06:05 Dose: 2 tab Ropinirole HCl (Requip) 0.5 mg PO DAILY PRN PRN Reason: restless legs Senna (Senna) 8.6 mg PO BID PRN PRN Reason: Constipation Trospium (Sanctura) 20 mg PO DAILY PRN PRN Reason: URGENCY Vitamin B Complex/Vitamin C (Super B With Vitamin C) 1 cap PO DAILY [facility] Discontinued Medications Acetaminophen (Tylenol) 975 mg PO ASDIRECTED [facility] Stop: 11/23/17 16:00 Last Admin: 11/23/17 08:02 Dose: 975 mg Bupivacaine HCl (Marcaine 0.25%) Confirm Administered Dose 30 ml .ROUTE .STK- MED ONE Stop: 11/23/17 07:35 Last Admin: 11/23/17 09:42 Dose: 30 ml Bupivacaine HCl (Sensorcaine-Mpf 0.75%) Confirm Administered Dose 30 ml .ROUTE .STK-MED ONE Stop: 11/23/17 08:09 Bupivacaine HCl/Dextrose (Marcaine 0.75% Spinal) Confirm Administered Dose 2 ml .ROUTE .STK-MED ONE Stop: 11/23/17 08:11 Cefazolin Sodium (Ancef) Confirm Administered Dose 2 gm .ROUTE .STK-MED ONE Stop: 11/23/17 07:35 Last Admin: 11/23/17 09:40 Dose: 2 gm Morphine Sulfate 8 mg/Epinephrine HCl 0.3 mg/Cefuroxime Sodium 750 mg/Ketorolac Tromethamine 30 mg/Sodium Chloride 27.9 ml 0 mg .XX ONETIME ONE Stop: 11/23/17 08:31 Last Admin: 11/23/17 09:42 Dose: 788.3 mg Docusate Sodium (Colace) 100 mg PO BID PRN PRN Reason: Constipation Epinephrine HCl (Adrenalin) Confirm Administered Dose 1 mg .ROUTE .STK-MED ONE Stop: 11/23/17 07:23 Lactated Ringer's (Ringers, Lactated) 1,000 mls @ 125 mls/hr IV ASDIRECTED [facility] Stop: 11/23/17 23:00 Last Admin: 11/23/17 11:15 Dose: 125 mls/hr Lidocaine HCl (Xylocaine-Mpf 1%) Confirm Administered Dose 5 mls @ as directed .ROUTE .STK-MED ONE Stop: 11/23/17 07:56 Lactated Ringer's (Ringers, Lactated) Confirm Administered Dose 1,000 mls @ as directed .ROUTE .STK-MED ONE Stop: 11/23/17 12:42 Iodine (Iodine 2% Mild Tincture) Confirm Administered Dose 30 ml .ROUTE .STK- MED ONE Stop: 11/23/17 07:35 Last Admin: 11/23/17 09:33 Dose: 18 ml Lidocaine/Sodium Bicarbonate (Buffered Lidocaine 1% In Ns 8.4%) 0.25 ml IDERM ONETIME PRN PRN Reason: Prior to IV Start Stop: 11/23/17 18:00 Last Admin: 11/23/17 07:24 Dose: 0.25 ml Midazolam HCl (Versed 1 Mg/Ml) Confirm Administered Dose 2 mg .ROUTE .STK-MED ONE Stop: 11/23/17 07:57 Non-Formulary Medication (Gluc 2kcl/Chondr/[place] Hy/Hy Ac [Glucosamine & Chondroitin Cap]) 1 tab PO DAILY [facility] Non-Formulary Medication (Ubidecarenone) 30 mg PO DAILY [facility] Oxycodone HCl (Oxycontin) 10 mg PO ONETIME [facility] Stop: 11/23/17 16:00 Last Admin: 11/23/17 08:02 Dose: 10 mg Pregabalin (Lyrica) 50 mg PO ONETIME [facility] Stop: 11/23/17 16:00 Last Admin: 11/23/17 08:02 Dose: 50 mg Propofol (Diprivan 20 Ml) Confirm Administered Dose 200 mg .ROUTE .STK-MED ONE Stop: 11/23/17 07:56 Propofol (Diprivan 20 Ml) Confirm Administered Dose 200 mg .ROUTE .STK-MED ONE Stop: 11/23/17 09:30 Ropivacaine (Naropin 0.5%) Confirm Administered Dose 30 ml .ROUTE .STK-MED ONE Stop: 11/23/17 07:23 Scopolamine (Transderm-Scop) 1.5 mg TOP ONETIME ONE Stop: 11/23/17 07:43 Last Admin: 11/23/17 07:56 Dose: 1.5 mg Sodium Chloride (Saline Flush) 10 ml FLUSH ASDIRECTED PRN PRN Reason: Keep Vein Open Stop: 11/23/17 18:00 Tranexamic Acid (Cyklokapron) Confirm Administered Dose 1,000 mg .ROUTE .STK- MED ONE Stop: 11/23/17 07:34 Last Admin: 11/23/17 09:48 Dose: 1,000 mg Vancomycin HCl (Vancomycin) Confirm Administered Dose 1 gm .ROUTE .STK-MED ONE Stop: 11/23/17 07:35 Last Admin: 11/23/17 09:43 Dose: 1 gm - Exam Quality Assessment: DVT Prophylaxis General: Alert, Oriented, Cooperative HEENT: Pupils Equal, Pupils Reactive, EOMI, Mucous Membr. Moist/[place] Neck: Supple, Trachea Midline Lungs: Clear to Auscultation, Normal Respiratory Effort Cardiovascular: Regular Rate, Regular Rhythm, Rubs GI/Abdominal Exam: Normal Bowel Sounds, Soft, Non-Tender, No Distention Back Exam: Normal Inspection, Full Range of Motion Extremities: No Pedal Edema, Normal Capillary Refill, Leg Pain, Limited Range of Motion, Other (Bandage on right knee. Cooling pack in place. ) Peripheral Pulses: 2+: Radial (L), Radial (R), Dorsalis Pedis (L), Dorsalis Pedis (R) Skin: Warm, Dry, Intact Wound/Incisions: Dressing Dry and Intact, No Drainage Neurological: No New Focal Deficit Psy/Mental Status: Alert, Normal Affect, Normal Mood - Problem List & Annotations (1) HLD (hyperlipidemia) SNOMED Code(s): 59799440 Code(s): E78.5 - HYPERLIPIDEMIA, UNSPECIFIED Status: Acute Priority: Low Current Visit: No Qualifiers: Hyperlipidemia type: unspecified Qualified Code(s): E78.5 - Hyperlipidemia , unspecified (2) Hypothyroidism SNOMED Code(s): 99464771 Code(s): E03.9 - HYPOTHYROIDISM, UNSPECIFIED Status: Acute Priority: Low Current Visit: No Qualifiers: Hypothyroidism type: unspecified Qualified Code(s): E03.9 - Hypothyroidism , unspecified (3) Incontinence SNOMED Code(s): 06525482 Code(s): R32 - UNSPECIFIED URINARY INCONTINENCE Status: Acute Priority: Low Current Visit: No Qualifiers: Incontinence type: urinary Urinary Incontinence type: unspecified incontinence Qualified Code(s): R32 - Unspecified urinary incontinence (4) Osteoarthritis SNOMED Code(s): 333114634 Code(s): M19.90 - UNSPECIFIED OSTEOARTHRITIS, UNSPECIFIED SITE Status: Acute Priority: High Current Visit: No Qualifiers: Osteoarthritis location: knee Osteoarthritis type: primary Laterality: right Qualified Code(s): M17.11 - Unilateral primary osteoarthritis, right knee (5) Other specified depressive episodes SNOMED Code(s): 47056959 Code(s): F32.89 - OTHER SPECIFIED DEPRESSIVE EPISODES Status: Acute Priority: Low Current Visit: No (6) RLS (restless legs syndrome) SNOMED Code(s): 96474482 Code(s): G25.81 - RESTLESS LEGS SYNDROME Status: Acute Priority: Low Current Visit: No (7) S/P total knee arthroplasty SNOMED Code(s): 4728409924240, 836176649, 2131145790880 Code(s): Z96.659 - PRESENCE OF UNSPECIFIED ARTIFICIAL KNEE JOINT Status: Acute Priority: High Current Visit: No Qualifiers: Laterality: left Qualified Code(s): Z96.652 - Presence of left artificial knee joint (8) Sleep apnea SNOMED Code(s): 80060490 Code(s): G47.30 - SLEEP APNEA, UNSPECIFIED Status: Acute Priority: Medium Current Visit: No Qualifiers: Sleep apnea type: unspecified type Qualified Code(s): G47.30 - Sleep apnea , unspecified (9) Vertigo SNOMED Code(s): 355209453 Code(s): R42 - DIZZINESS AND GIDDINESS Status: Acute Priority: Low Current Visit: No - Problem List Review Problem List Initiated/Reviewed/Updated: Yes - Plan Plan:: I/P: Acute: S/P left total knee arthroplasty - post-operative day 1 -DVT prophylaxis and pain management per primary care team -PT/OT -IS/RT -Monitor oxygen saturation -Titrate oxygen as needed -Vital signs stable -Monitor labs -Pre-operative Hgb was 14.0; now 11.9 -Pre-operative GFR was 56; now >60 Osteoarthritis of left knee -Pain management per primary care team Chronic: HLD Sleep Apnea Urinary incontinence Osteoarthritis Restless leg syndrome Vertigo Depression Hypothyroidism Obesity Vitmain D deficiency Plan: CM for discharge planning GI prophylaxis Home medications as indicated Other orders as listed above Routine AM labs She is a full code. Her PCP is Jessa Velasco PA-C From a hospitalist standpoint Rebecca is doing very well. She has been up ambulating and working with therapies. Labs and vitals look good. She is not on oxygen and has urinated. Pain is controlled. She is clear for discharge today pending primary care team and PT/OT agreement. Thank you for allowing us to participate in the care of this patient!!
--- NOTE | 2017-11-24 08:23 | PCM.SURGPN ---
- General Info Date of Service: 11/24/17 POD#: 1 Functional Status: Reports: Pain Controlled, Tolerating Diet, Ambulating, Urinating, Incentive Spirometry - Review of Systems Musculoskeletal: Reports: Other (The pt feels prepared for discharge to home. Therapy states pt is doing well.) - Patient Data Vitals - Most Recent: Last Vital Signs Temp 98.4 F 11/24/17 06:10 Pulse 79 11/24/17 06:10 Resp 18 11/24/17 06:10 BP 119/52 L 11/24/17 06:10 Pulse Ox 99 11/24/17 06:10 Weight - Most Recent: 219 lb 9.6 oz I&O - Last 24 Hours: Intake & Output 11/23/17 11/24/17 11/24/17 22:59 06:59 14:59 Intake Total 1300 650 Output Total 200 450 Balance 1100 200 Lab Results Last 24 Hrs: Laboratory Results - last 24 hr 11/24/17 11/24/17 Range/Units 06:00 06:00 WBC 12.01 H (3.98-10.04) K/mm3 RBC 3.92 L (3.98-5.22) M/mm3 Hgb 11.9 (11.2-15.7) gm/L Hct 36.6 (34.1-44.9) % MCV 93.4 (79.4-94.8) fl MCH 30.4 (25.6-32.2) pg MCHC 32.5 (32.2-35.5) g/dl RDW Std Deviation 41.9 (36.4-46.3) fL Plt Count 177 L (182-369) K/mm3 MPV 11.5 (9.4-12.3) fl Sodium 135 L (136-145) mEq/L Potassium 4.1 (3.5-5.1) mEq/L Chloride 101 (98-107) mEq/L Carbon Dioxide 25 (21-32) mEq/L Anion Gap 13.1 (5-15) BUN 13 (7-18) mg/dL Creatinine 0.8 (0.55-1.02) mg/dL Est Cr Clr Drug Dosing 58.41 mL/min Estimated GFR (MDRD) > 60 (>60) mL/min BUN/Creatinine Ratio 16.3 (14-18) Glucose 158 H (80-115) mg/dL Calcium 8.7 (8.5-10.1) mg/dL Total Bilirubin 0.7 (0.2-1.0) mg/dL AST 49 H (15-37) U/L ALT 35 (14-59) U/L Alkaline Phosphatase 69 (46-116) U/L Total Protein 6.1 L (6.4-8.2) g/dl Albumin 3.0 L (3.4-5.0) g/dl Globulin 3.1 gm/dL Albumin/Globulin Ratio 1.0 (1-2) Med Orders - Current: Current Medications Aspirin (Ecotrin) 325 mg PO BID [facility] Bisacodyl (Dulcolax) 5 mg PO DAILY PRN PRN Reason: Constipation Calcium Carbonate (Calcium Carbonate/Vitamin D 600 Mg-200 Unit) 1 tab PO DAILY [facility] Cholecalciferol (Vitamin D3) 2,000 units PO BID [facility] Last Admin: 11/23/17 20:48 Dose: 2,000 units Cyclobenzaprine HCl (Flexeril) 10 mg PO TID PRN PRN Reason: Spasms Docusate Sodium (Colace) 100 mg PO BID [facility] Last Admin: 11/23/17 20:48 Dose: 100 mg Famotidine (Pepcid) 20 mg PO Q12H [facility] Last Admin: 11/23/17 20:48 Dose: 20 mg Cefazolin Sodium/Dextrose 2 gm (/ Premix) 50 mls @ 100 mls/hr IV Q8H [facility] Stop: 11/24/17 08:29 Last Admin: 11/24/17 00:21 Dose: 100 mls/hr Ketorolac Tromethamine (Toradol) 15 mg IVPUSH Q6H PRN PRN Reason: Pain Last Admin: 11/23/17 15:34 Dose: 15 mg Levothyroxine Sodium (Synthroid) 50 mcg PO ACBREAKFAST [facility] Last Admin: 11/24/17 06:05 Dose: 50 mcg Magnesium Hydroxide (Milk Of Magnesia) 30 ml PO BID PRN PRN Reason: Constipation Magnesium Oxide (Magnesium Oxide) 400 mg PO DAILY [facility] Miscellaneous Information (Remove Patch) 0 ea TRDERM ONETIME ONE Stop: 11/26/17 08:01 Morphine Sulfate (Morphine) 2 mg IVPUSH Q2H PRN PRN Reason: Breakthrough Pain Multivitamins (Thera) 1 each PO DAILY [facility] Naloxone HCl (Narcan) 0.1 mg IVPUSH Q5M PRN PRN Reason: Oversedation Ondansetron HCl (Zofran) 4 mg IVPUSH Q6H PRN PRN Reason: Nausea/Vomiting Oxycodone/Acetaminophen (Percocet 325-5 Mg) 1 - 2 tab PO Q4H PRN PRN Reason: Pain Last Admin: 11/24/17 06:05 Dose: 2 tab Ropinirole HCl (Requip) 0.5 mg PO DAILY PRN PRN Reason: restless legs Senna (Senna) 8.6 mg PO BID PRN PRN Reason: Constipation Trospium (Sanctura) 20 mg PO DAILY PRN PRN Reason: URGENCY Vitamin B Complex/Vitamin C (Super B With Vitamin C) 1 cap PO DAILY [facility] Discontinued Medications Acetaminophen (Tylenol) 975 mg PO ASDIRECTED [facility] Stop: 11/23/17 16:00 Last Admin: 11/23/17 08:02 Dose: 975 mg Bupivacaine HCl (Marcaine 0.25%) Confirm Administered Dose 30 ml .ROUTE .STK- MED ONE Stop: 11/23/17 07:35 Last Admin: 11/23/17 09:42 Dose: 30 ml Bupivacaine HCl (Sensorcaine-Mpf 0.75%) Confirm Administered Dose 30 ml .ROUTE .STK-MED ONE Stop: 11/23/17 08:09 Bupivacaine HCl/Dextrose (Marcaine 0.75% Spinal) Confirm Administered Dose 2 ml .ROUTE .STK-MED ONE Stop: 11/23/17 08:11 Cefazolin Sodium (Ancef) Confirm Administered Dose 2 gm .ROUTE .STK-MED ONE Stop: 11/23/17 07:35 Last Admin: 11/23/17 09:40 Dose: 2 gm Morphine Sulfate 8 mg/Epinephrine HCl 0.3 mg/Cefuroxime Sodium 750 mg/Ketorolac Tromethamine 30 mg/Sodium Chloride 27.9 ml 0 mg .XX ONETIME ONE Stop: 11/23/17 08:31 Last Admin: 11/23/17 09:42 Dose: 788.3 mg Docusate Sodium (Colace) 100 mg PO BID PRN PRN Reason: Constipation Epinephrine HCl (Adrenalin) Confirm Administered Dose 1 mg .ROUTE .STK-MED ONE Stop: 11/23/17 07:23 Lactated Ringer's (Ringers, Lactated) 1,000 mls @ 125 mls/hr IV ASDIRECTED [facility] Stop: 11/23/17 23:00 Last Admin: 11/23/17 11:15 Dose: 125 mls/hr Lidocaine HCl (Xylocaine-Mpf 1%) Confirm Administered Dose 5 mls @ as directed .ROUTE .STK-MED ONE Stop: 11/23/17 07:56 Lactated Ringer's (Ringers, Lactated) Confirm Administered Dose 1,000 mls @ as directed .ROUTE .STK-MED ONE Stop: 11/23/17 12:42 Iodine (Iodine 2% Mild Tincture) Confirm Administered Dose 30 ml .ROUTE .STK- MED ONE Stop: 11/23/17 07:35 Last Admin: 11/23/17 09:33 Dose: 18 ml Lidocaine/Sodium Bicarbonate (Buffered Lidocaine 1% In Ns 8.4%) 0.25 ml IDERM ONETIME PRN PRN Reason: Prior to IV Start Stop: 11/23/17 18:00 Last Admin: 11/23/17 07:24 Dose: 0.25 ml Midazolam HCl (Versed 1 Mg/Ml) Confirm Administered Dose 2 mg .ROUTE .STK-MED ONE Stop: 11/23/17 07:57 Non-Formulary Medication (Gluc 2kcl/Chondr/[place] Hy/Hy Ac [Glucosamine & Chondroitin Cap]) 1 tab PO DAILY [facility] Non-Formulary Medication (Ubidecarenone) 30 mg PO DAILY [facility] Oxycodone HCl (Oxycontin) 10 mg PO ONETIME [facility] Stop: 11/23/17 16:00 Last Admin: 11/23/17 08:02 Dose: 10 mg Pregabalin (Lyrica) 50 mg PO ONETIME [facility] Stop: 11/23/17 16:00 Last Admin: 11/23/17 08:02 Dose: 50 mg Propofol (Diprivan 20 Ml) Confirm Administered Dose 200 mg .ROUTE .STK-MED ONE Stop: 11/23/17 07:56 Propofol (Diprivan 20 Ml) Confirm Administered Dose 200 mg .ROUTE .STK-MED ONE Stop: 11/23/17 09:30 Ropivacaine (Naropin 0.5%) Confirm Administered Dose 30 ml .ROUTE .STK-MED ONE Stop: 11/23/17 07:23 Scopolamine (Transderm-Scop) 1.5 mg TOP ONETIME ONE Stop: 11/23/17 07:43 Last Admin: 11/23/17 07:56 Dose: 1.5 mg Sodium Chloride (Saline Flush) 10 ml FLUSH ASDIRECTED PRN PRN Reason: Keep Vein Open Stop: 11/23/17 18:00 Tranexamic Acid (Cyklokapron) Confirm Administered Dose 1,000 mg .ROUTE .STK- MED ONE Stop: 11/23/17 07:34 Last Admin: 11/23/17 09:48 Dose: 1,000 mg Vancomycin HCl (Vancomycin) Confirm Administered Dose 1 gm .ROUTE .STK-MED ONE Stop: 11/23/17 07:35 Last Admin: 11/23/17 09:43 Dose: 1 gm - Exam Wound/Incisions: Dressing Dry and Intact General: Alert, Cooperative, No Acute Distress Lungs: Normal Respiratory Effort Extremities: Other (NVS intact for LLE. Lenka's negative. ) - Problem List Review Problem List Initiated/Reviewed/Updated: Yes - My Orders Last 24 Hours: Active Orders 24 hr Category Date Time Status Patient Status [ADT] Routine ADT 11/23/17 07:30 Active Ambulate [RC] 09,13,17 Care 11/23/17 07:30 Active May Shower [RC] ASDIRECTED Care 11/23/17 07:30 Active Notify Provider Consults [RC] ASDIRECTED Care 11/23/17 07:34 Active Oxygen Therapy [RC] PRN Care 11/23/17 07:30 Active RT Incentive Spirometry [RC] Q1HWA Care 11/23/17 07:29 Active Ready for Discharge [RC] PER UNIT ROUTINE Care 11/24/17 07:50 Active Up to Chair [RC] BID Care 11/23/17 07:30 Active Vital Signs [RC] Q4HR Care 11/23/17 07:30 Active Consult to Physician [CONS] Routine Cons 11/23/17 07:30 Active OT Evaluation and Treatment [CONS] Routine Cons 11/23/17 07:29 Active PT Evaluation and Treatment [CONS] Routine Cons 11/23/17 07:29 Active Regular Diet [DIET] Diet 11/23/17 Lunch Active Acetaminophen/oxyCODONE [Percocet 325-5 MG] Med 11/23/17 07:29 Active 1 - 2 tab PO Q4H PRN Aspirin [Ecotrin] Med 11/24/17 09:00 Active 325 mg PO BID Bisacodyl [Dulcolax] Med 11/23/17 07:30 Active 5 mg PO DAILY PRN Calcium Carbonate/Vitamin D3 [Calcium Carbonate/Vitamin Med 11/24/17 09:00 Active D 600 MG-200 Unit] 1 tab PO DAILY Cholecalciferol (Vitamin D3) [Vitamin D3] Med 11/23/17 21:00 Active 2,000 units PO BID Cyclobenzaprine [Flexeril] Med 11/23/17 07:29 Active 10 mg PO TID PRN Docusate Sodium [Colace] Med 11/23/17 21:00 Active 100 mg PO BID Famotidine [Pepcid] Med 11/23/17 21:00 Active 20 mg PO Q12H Ketorolac [Toradol] Med 11/23/17 07:29 Active 15 mg IVPUSH Q6H PRN Levothyroxine [Synthroid] Med 11/24/17 06:00 Active 50 mcg PO ACBREAKFAST Magnesium Hydroxide [Milk of Magnesia] Med 11/23/17 07:30 Active 30 ml PO BID PRN Magnesium Oxide Med 11/24/17 09:00 Active 400 mg PO DAILY Morphine Med 11/23/17 07:30 Active 2 mg IVPUSH Q2H PRN Multivitamins,Therapeutic [Thera] Med 11/24/17 09:00 Active 1 each PO DAILY Naloxone [Narcan] Med 11/23/17 07:30 Active 0.1 mg IVPUSH Q5M PRN Ondansetron [Zofran] Med 11/23/17 07:30 Active 4 mg IVPUSH Q6H PRN Remove Patch Med 11/26/17 08:00 Once 0 ea TRDERM ONETIME ONE Sennosides [Senna] Med 11/23/17 07:30 Active 8.6 mg PO BID PRN Trospium [Sanctura] Med 11/23/17 10:25 Active 20 mg PO DAILY PRN Vitamin B Complex with C [Super B With Vitamin C] Med 11/24/17 09:00 Active 1 cap PO DAILY ceFAZolin [Ancef] 2 gm Med 11/23/17 16:00 Active Premix Bag 1 bag IV Q8H rOPINIRole [Requip] Med 11/23/17 10:25 Active 0.5 mg PO DAILY PRN Antiembolic Hose [OM.PC] Per Unit Routine Oth 11/23/17 07:33 Ordered Ice Therapy [OM.PC] Per Unit Routine Oth 11/23/17 07:32 Ordered Sequential Compression Device [OM.PC] Per Unit Routine Oth 11/23/17 07:29 Ordered Resuscitation Status Routine Resus Stat 11/23/17 07:30 Ordered Medication Orders Aspirin (Ecotrin) 325 mg PO BID [facility] Bisacodyl (Dulcolax) 5 mg PO DAILY PRN PRN Reason: Constipation Calcium Carbonate (Calcium Carbonate/Vitamin D 600 Mg-200 Unit) 1 tab PO DAILY [facility] Cholecalciferol (Vitamin D3) 2,000 units PO BID [facility] Last Admin: 11/23/17 20:48 Dose: 2,000 units Cyclobenzaprine HCl (Flexeril) 10 mg PO TID PRN PRN Reason: Spasms Docusate Sodium (Colace) 100 mg PO BID [facility] Last Admin: 11/23/17 20:48 Dose: 100 mg Famotidine (Pepcid) 20 mg PO Q12H [facility] Last Admin: 11/23/17 20:48 Dose: 20 mg Cefazolin Sodium/Dextrose 2 gm (/ Premix) 50 mls @ 100 mls/hr IV Q8H [facility] Stop: 11/24/17 08:29 Last Admin: 11/24/17 00:21 Dose: 100 mls/hr Infusion: 11/23/17 16:29 Dose: 100 mls/hr Admin: 11/23/17 15:59 Dose: 100 mls/hr Ketorolac Tromethamine (Toradol) 15 mg IVPUSH Q6H PRN PRN Reason: Pain Last Admin: 11/23/17 15:34 Dose: 15 mg Levothyroxine Sodium (Synthroid) 50 mcg PO ACBREAKFAST [facility] Last Admin: 11/24/17 06:05 Dose: 50 mcg Magnesium Hydroxide (Milk Of Magnesia) 30 ml PO BID PRN PRN Reason: Constipation Magnesium Oxide (Magnesium Oxide) 400 mg PO DAILY [facility] Miscellaneous Information (Remove Patch) 0 ea TRDERM ONETIME ONE Stop: 11/26/17 08:01 Morphine Sulfate (Morphine) 2 mg IVPUSH Q2H PRN PRN Reason: Breakthrough Pain Multivitamins (Thera) 1 each PO DAILY [facility] Naloxone HCl (Narcan) 0.1 mg IVPUSH Q5M PRN PRN Reason: Oversedation Ondansetron HCl (Zofran) 4 mg IVPUSH Q6H PRN PRN Reason: Nausea/Vomiting Oxycodone/Acetaminophen (Percocet 325-5 Mg) 1 - 2 tab PO Q4H PRN PRN Reason: Pain Last Admin: 11/24/17 06:05 Dose: 2 tab Admin: 11/23/17 20:49 Dose: 2 tab Ropinirole HCl (Requip) 0.5 mg PO DAILY PRN PRN Reason: restless legs Senna (Senna) 8.6 mg PO BID PRN PRN Reason: Constipation Trospium (Sanctura) 20 mg PO DAILY PRN PRN Reason: URGENCY Vitamin B Complex/Vitamin C (Super B With Vitamin C) 1 cap PO DAILY [facility] - Assessment Assessment (Free Text/Narrative):: POD#1 - left TKA - Plan Plan (Free Text/Narrative):: 1. Hgb 11.9. 2. ASA BID, frequent mobility, ankle pumps, TEDs. 3. Discharge to home today. The pt's case was discussed with Dr. Le.
--- NOTE | 2017-11-24 08:39 | PCM.DCSUM1 ---
Discharge Summary - Hospital Course Brief History: Rebecca is a 62 yo female who underwent left TKA with Dr. Le on 11-24-2017. The procedure was completed under spinal anesthesia. The pt tolerated the procedure well and was admitted to the Medical-Surgical Unit. Medical management was provided by the Hospitalist service. The pt's Hospital course was uneventful. The pt's Hgb on POD#1 was 11.9. On POD#1, 325mg ASA BID was initiated for VTE prophylaxis. SCDs and TEDs were also ordered. A Mepilex dressing was placed at the incision site at the time of surgery and remained clean and dry. The pt participated in P.T. and O.T. and progressed well. The pt was allowed to WBAT. On POD#1, the pt was deemed appropriate to discharge to home. - Discharge Data Discharge Date: 11/24/17 Discharge Disposition: Home, Self-Care 01 Condition: Good - Patient Summary/Data Consults: Consultations 11/23/17 07:29 OT Evaluation and Treatment [CONS] Routine PT Evaluation and Treatment [CONS] Routine 11/23/17 07:30 Consult to Physician [CONS] Routine - Patient Instructions Diet: Usual Diet as Tolerated Activity: Apply Ice, As Tolerated, Elevate Extremity, Full Weight Bearing Driving: Do Not Drive Showering/Bathing: May Shower Wound/Incision Care: Keep Operative Site/Wound Site Clean and Dry, Do NOT Change Dressing Notify Provider of: Fever, Increased Pain, Swelling and Redness, Drainage, Nausea and/or Vomiting Other/Special Instructions: Please get up and moving around every hour while awake. This helps to prevent blood clots. Please use your walker and have help with mobility as needed. Please take 325mg Aspirin TWICE daily. The aspirin is being used for blood clot prevention and not for pain management so please do not miss a dose of the medication. At home, please complete the exercises that you learned during the Hospital stay. Schedule for physical therapy. Use the pain medication as needed. The medication may cause drowsiness and constipation. Contact your primary care provider for instructions if you are constipated. You may use a stool softener like docusate sodium or Colace 100mg twice daily and/or a laxative like Miralax daily for constipation. Increase your water and fiber intake while you are using the pain medication. Please try to wean from use of the pain medication as soon as able. Wear the JULEE hose during the day and you may remove these at night. Elevate the limb to decrease swelling. Place ice to the area often. Place a towel between your skin and the blue pad. Use the incentive spirometer often. Take deep breaths throughout the day. Please keep the Mepilex dressing in place until follow-up. Notify the Clinic if the dressing becomes saturated. Increase your protein intake while you are healing. If you have diabetes, please closely monitor your blood sugars and notify your primary care provider with abnormal values. Elevated blood sugars increases the risk of infection. Call the Clinic with questions or concerns - [phone]. - Discharge Plan *PRESCRIPTION DRUG MONITORING PROGRAM REVIEWED*: No *COPY OF PRESCRIPTION DRUG MONITORING REPORT IN PATIENT [place]: No Prescriptions/Med Rec: Acetaminophen/oxyCODONE [Percocet 325-5 MG] 1 - 2 tab PO Q6H PRN #60 tablet PRN Reason: Pain Aspirin [Ecotrin] 325 mg PO BID #84 tab.ec Cyclobenzaprine [Flexeril] 10 mg PO Q8H PRN #40 tab PRN Reason: Spasms Home Medications: Home Meds Multivitamin [Multi-Vitamin Daily] 1 tab PO DAILY 03/03/14 [History] Tolterodine [Detrol] 1 mg PO DAILY PRN 03/03/14 [History] Vitamin B Complex [B Complex] 1 tab PO DAILY 03/03/14 [History] Ubidecarenone [COQ-10] 30 mg PO DAILY 07/12/17 [History] rOPINIRole HCl [Requip] 0.5 mg PO DAILY PRN 07/12/17 [History] Ascorbic Acid [Vitamin C] 500 mg PO BID 11/22/17 [History] Calcium Carbonate/Vitamin D3 [Calcium 600 + Vit D 400 Softgl] 1 tab PO DAILY [History] Cholecalciferol (Vitamin D3) [Vitamin D3] 2,000 unit PO BID 11/22/17 [History] Gluc 2KCl/Chondr/[place] Hy/Hy Ac [Glucosamine & Chondroitin Cap] 1 tab PO DAILY [History] Levothyroxine [Synthroid] 50 mcg PO DAILY 11/22/17 [History] Magnesium Oxide [Magnesium] 500 mg PO DAILY 11/22/17 [History] Acetaminophen/oxyCODONE [Percocet 325-5 MG] 1 - 2 tab PO Q6H PRN #60 tablet [Rx] Aspirin [Ecotrin] 325 mg PO BID #84 tab.ec 11/24/17 [Rx] Bisacodyl [Dulcolax] 5 mg PO DAILY PRN tablet 11/24/17 [Rx] Cyclobenzaprine [Flexeril] 10 mg PO Q8H PRN #40 tab 11/24/17 [Rx] Docusate Sodium [Colace] 100 mg PO BID cap 11/24/17 [Rx] Famotidine [Pepcid] 20 mg PO Q12H tablet 11/24/17 [Rx] Magnesium Hydroxide [Milk of Magnesia] 30 ml PO BID PRN cup 11/24/17 [Rx] Sennosides [Senna] 8.6 mg PO BID PRN tablet 11/24/17 [Rx] Referrals: Shruti Velasquez, TROY [Physician Petrographer] - - Patient Data Vitals - Most Recent: Last Vital Signs Temp 98.4 F 11/24/17 06:10 Pulse 79 11/24/17 06:10 Resp 18 11/24/17 06:10 BP 119/52 L 11/24/17 06:10 Pulse Ox 99 11/24/17 06:10 Weight - Most Recent: 219 lb 9.6 oz I&O - Last 24 hours: Intake & Output 11/23/17 11/24/17 11/24/17 22:59 06:59 14:59 Intake Total 1300 650 Output Total 200 450 Balance 1100 200 Lab Results - Last 24 hrs: Laboratory Results - last 24 hr 11/24/17 11/24/17 Range/Units 06:00 06:00 WBC 12.01 H (3.98-10.04) K/mm3 RBC 3.92 L (3.98-5.22) M/mm3 Hgb 11.9 (11.2-15.7) gm/L Hct 36.6 (34.1-44.9) % MCV 93.4 (79.4-94.8) fl MCH 30.4 (25.6-32.2) pg MCHC 32.5 (32.2-35.5) g/dl RDW Std Deviation 41.9 (36.4-46.3) fL Plt Count 177 L (182-369) K/mm3 MPV 11.5 (9.4-12.3) fl Sodium 135 L (136-145) mEq/L Potassium 4.1 (3.5-5.1) mEq/L Chloride 101 (98-107) mEq/L Carbon Dioxide 25 (21-32) mEq/L Anion Gap 13.1 (5-15) BUN 13 (7-18) mg/dL Creatinine 0.8 (0.55-1.02) mg/dL Est Cr Clr Drug Dosing 58.41 mL/min Estimated GFR (MDRD) > 60 (>60) mL/min BUN/Creatinine Ratio 16.3 (14-18) Glucose 158 H (80-115) mg/dL Calcium 8.7 (8.5-10.1) mg/dL Total Bilirubin 0.7 (0.2-1.0) mg/dL AST 49 H (15-37) U/L ALT 35 (14-59) U/L Alkaline Phosphatase 69 (46-116) U/L Total Protein 6.1 L (6.4-8.2) g/dl Albumin 3.0 L (3.4-5.0) g/dl Globulin 3.1 gm/dL Albumin/Globulin Ratio 1.0 (1-2) Med Orders - Current: Current Medications Aspirin (Ecotrin) 325 mg PO BID [facility] Bisacodyl (Dulcolax) 5 mg PO DAILY PRN PRN Reason: Constipation Calcium Carbonate (Calcium Carbonate/Vitamin D 600 Mg-200 Unit) 1 tab PO DAILY [facility] Cholecalciferol (Vitamin D3) 2,000 units PO BID [facility] Last Admin: 11/23/17 20:48 Dose: 2,000 units Cyclobenzaprine HCl (Flexeril) 10 mg PO TID PRN PRN Reason: Spasms Docusate Sodium (Colace) 100 mg PO BID [facility] Last Admin: 11/23/17 20:48 Dose: 100 mg Famotidine (Pepcid) 20 mg PO Q12H [facility] Last Admin: 11/23/17 20:48 Dose: 20 mg Ketorolac Tromethamine (Toradol) 15 mg IVPUSH Q6H PRN PRN Reason: Pain Last Admin: 11/23/17 15:34 Dose: 15 mg Levothyroxine Sodium (Synthroid) 50 mcg PO ACBREAKFAST [facility] Last Admin: 11/24/17 06:05 Dose: 50 mcg Magnesium Hydroxide (Milk Of Magnesia) 30 ml PO BID PRN PRN Reason: Constipation Magnesium Oxide (Magnesium Oxide) 400 mg PO DAILY [facility] Miscellaneous Information (Remove Patch) 0 ea TRDERM ONETIME ONE Stop: 11/26/17 08:01 Morphine Sulfate (Morphine) 2 mg IVPUSH Q2H PRN PRN Reason: Breakthrough Pain Multivitamins (Thera) 1 each PO DAILY [facility] Naloxone HCl (Narcan) 0.1 mg IVPUSH Q5M PRN PRN Reason: Oversedation Ondansetron HCl (Zofran) 4 mg IVPUSH Q6H PRN PRN Reason: Nausea/Vomiting Oxycodone/Acetaminophen (Percocet 325-5 Mg) 1 - 2 tab PO Q4H PRN PRN Reason: Pain Last Admin: 11/24/17 06:05 Dose: 2 tab Ropinirole HCl (Requip) 0.5 mg PO DAILY PRN PRN Reason: restless legs Senna (Senna) 8.6 mg PO BID PRN PRN Reason: Constipation Trospium (Sanctura) 20 mg PO DAILY PRN PRN Reason: URGENCY Vitamin B Complex/Vitamin C (Super B With Vitamin C) 1 cap PO DAILY [facility] Discontinued Medications Acetaminophen (Tylenol) 975 mg PO ASDIRECTED [facility] Stop: 11/23/17 16:00 Last Admin: 11/23/17 08:02 Dose: 975 mg Bupivacaine HCl (Marcaine 0.25%) Confirm Administered Dose 30 ml .ROUTE .STK- MED ONE Stop: 11/23/17 07:35 Last Admin: 11/23/17 09:42 Dose: 30 ml Bupivacaine HCl (Sensorcaine-Mpf 0.75%) Confirm Administered Dose 30 ml .ROUTE .STK-MED ONE Stop: 11/23/17 08:09 Bupivacaine HCl/Dextrose (Marcaine 0.75% Spinal) Confirm Administered Dose 2 ml .ROUTE .STK-MED ONE Stop: 11/23/17 08:11 Cefazolin Sodium (Ancef) Confirm Administered Dose 2 gm .ROUTE .STK-MED ONE Stop: 11/23/17 07:35 Last Admin: 11/23/17 09:40 Dose: 2 gm Morphine Sulfate 8 mg/Epinephrine HCl 0.3 mg/Cefuroxime Sodium 750 mg/Ketorolac Tromethamine 30 mg/Sodium Chloride 27.9 ml 0 mg .XX ONETIME ONE Stop: 11/23/17 08:31 Last Admin: 11/23/17 09:42 Dose: 788.3 mg Docusate Sodium (Colace) 100 mg PO BID PRN PRN Reason: Constipation Epinephrine HCl (Adrenalin) Confirm Administered Dose 1 mg .ROUTE .STK-MED ONE Stop: 11/23/17 07:23 Lactated Ringer's (Ringers, Lactated) 1,000 mls @ 125 mls/hr IV ASDIRECTED [facility] Stop: 11/23/17 23:00 Last Admin: 11/23/17 11:15 Dose: 125 mls/hr Cefazolin Sodium/Dextrose 2 gm (/ Premix) 50 mls @ 100 mls/hr IV Q8H [facility] Stop: 11/24/17 08:29 Last Admin: 11/24/17 00:21 Dose: 100 mls/hr Lidocaine HCl (Xylocaine-Mpf 1%) Confirm Administered Dose 5 mls @ as directed .ROUTE .STK-MED ONE Stop: 11/23/17 07:56 Lactated Ringer's (Ringers, Lactated) Confirm Administered Dose 1,000 mls @ as directed .ROUTE .STK-MED ONE Stop: 11/23/17 12:42 Iodine (Iodine 2% Mild Tincture) Confirm Administered Dose 30 ml .ROUTE .STK- MED ONE Stop: 11/23/17 07:35 Last Admin: 11/23/17 09:33 Dose: 18 ml Lidocaine/Sodium Bicarbonate (Buffered Lidocaine 1% In Ns 8.4%) 0.25 ml IDERM ONETIME PRN PRN Reason: Prior to IV Start Stop: 11/23/17 18:00 Last Admin: 11/23/17 07:24 Dose: 0.25 ml Midazolam HCl (Versed 1 Mg/Ml) Confirm Administered Dose 2 mg .ROUTE .STK-MED ONE Stop: 11/23/17 07:57 Non-Formulary Medication (Gluc 2kcl/Chondr/[place] Hy/Hy Ac [Glucosamine & Chondroitin Cap]) 1 tab PO DAILY [facility] Non-Formulary Medication (Ubidecarenone) 30 mg PO DAILY [facility] Oxycodone HCl (Oxycontin) 10 mg PO ONETIME [facility] Stop: 11/23/17 16:00 Last Admin: 11/23/17 08:02 Dose: 10 mg Pregabalin (Lyrica) 50 mg PO ONETIME [facility] Stop: 11/23/17 16:00 Last Admin: 11/23/17 08:02 Dose: 50 mg Propofol (Diprivan 20 Ml) Confirm Administered Dose 200 mg .ROUTE .STK-MED ONE Stop: 11/23/17 07:56 Propofol (Diprivan 20 Ml) Confirm Administered Dose 200 mg .ROUTE .STK-MED ONE Stop: 11/23/17 09:30 Ropivacaine (Naropin 0.5%) Confirm Administered Dose 30 ml .ROUTE .STK-MED ONE Stop: 11/23/17 07:23 Scopolamine (Transderm-Scop) 1.5 mg TOP ONETIME ONE Stop: 11/23/17 07:43 Last Admin: 11/23/17 07:56 Dose: 1.5 mg Sodium Chloride (Saline Flush) 10 ml FLUSH ASDIRECTED PRN PRN Reason: Keep Vein Open Stop: 11/23/17 18:00 Tranexamic Acid (Cyklokapron) Confirm Administered Dose 1,000 mg .ROUTE .STK- MED ONE Stop: 11/23/17 07:34 Last Admin: 11/23/17 09:48 Dose: 1,000 mg Vancomycin HCl (Vancomycin) Confirm Administered Dose 1 gm .ROUTE .STK-MED ONE Stop: 11/23/17 07:35 Last Admin: 11/23/17 09:43 Dose: 1 gm
[2017-11-24] MEDS ORDERED: Magnesium Oxide 400 MG Tab PO SCH (09:00)
[2017-11-24] MEDS ORDERED: Multivitamins,Therapeutic Tab PO SCH (09:00)
[2017-11-24] MEDS ORDERED: Calcium Carbonate/Vitamin D3 600 MG-200 Units Tab PO SCH (09:00)
[2017-11-24] MEDS ORDERED: UBIDECARENONE 30 MG PO SCH (09:00)
[2017-11-24] MEDS ORDERED: Vitamin B Complex With Vitamin C Cap PO SCH (09:00)
[2017-11-24] MEDS ORDERED: Aspirin 325 MG Tab.EC PO SCH (09:00)
[2017-11-24] MEDS ORDERED: Non-Formulary Medication 1 Each (Gluc 2kcl/Chondr/Coll Hy/Hy Ac [Glucosamine & Chondroitin PO SCH (09:00)
[2017-11-24] MEDS: Famotidine 20 MG Tab PO SCH (09:17)
[2017-11-24] MEDS: Docusate Sodium 100 MG Cap PO SCH (09:17)
[2017-11-24] MEDS: Cholecalciferol (Vitamin D3) 1,000 Unit Tab PO SCH (09:17)
[2017-11-24 17:10] VITALS: BP 122/60
--- NOTE | 2017-12-06 05:28 | PCM.OPNOTE ---
- General Post-Op/Procedure Note Date of Surgery/Procedure: 11/23/17 Operative Procedure(s): left total knee arthroplasty Pre Op Diagnosis: left knee osteoarthrosis Post-Op Diagnosis: Same Anesthesia Technique: Local, MAC, Spinal Primary Surgeon: Capo Le Anesthesia Provider: Ever Fernandes Mathematics Department Chair: Shruti Velasquez Mathematics Department Chair: Debbie Acuna EBL in mLs: 200 Complications: None Condition: Good Free Text/Narrative:: size 3 femur size 2 tibia with 9mm 29x9
--- NOTE | 2017-12-06 23:15 | OR ---
DATE OF OPERATION: 11/23/2017 SURGEON: Capo Le MD OPERATION PERFORMED: Left total knee arthroplasty. PREOPERATIVE DIAGNOSIS: Left knee osteoarthrosis. POSTOPERATIVE DIAGNOSIS: Left knee osteoarthrosis. ANESTHESIA: Local MAC with spinal. ANESTHESIA PROVIDER: Ever Fernandes. ASSISTANTS: 1. Shruti Velasquez PA-C. 2. Debbie Acuna LPN. ESTIMATED BLOOD LOSS: 300 mL. COMPLICATIONS: None. CONDITION: Stable. IMPLANTS: 1. Ishmael size 3 CR press-fit femur. 2. Sterling size 2 press-fit tibial base plate. 3. Sterling size 2 9-mm CS polyethylene insert. 4. Sterling size 29 x 9 mm asymmetric patella. DESCRIPTION OF PROCEDURE: The patient was identified in the preop holding area. Proper site was marked and identified by the surgeon. The patient was taken back to the operating theater. After adequate anesthesia, the patient's left lower extremity had a nonsterile tourniquet applied and it was then sterilely prepped and draped in the usual sterile fashion. OR timeout was performed. The patient received 2 g IV Ancef. At this time, left lower extremity was exsanguinated. Tourniquet was insufflated to 300 mmHg. Standard medial parapatellar incision was made. Medial parapatellar arthrotomy was created. Deep fibers of the MCL were raised and anterior fat pad was resected. At this time, attention was turned to the patella. Patella measured 22, it was resected to a 13 for 29 x 9 mm patella. Drill holes were then drilled and found to be in adequate position. The drill was then drilled in the distal femur and the intramedullary distal femoral cutting guide was then placed. 8 mm was resected off the distal femur and was found to be an adequate resection. Sizing guide was placed. It was found to be a size Ishmael size 3 CR press-fit femur that was shown on the implant record at the beginning of this dictation. The drill holes were drilled for the epicondylar axis using Whitesides line and epicondyles as reference. At this time, the 4-in-1 cutting block was placed. An anterior posterior and anterior and posterior chamfer cuts were then completed. Attention was turned to the tibia. The posterior medial lateral retractors were placed. The extramedullary tibial guide was placed. It was placed in the old footprint of the ACL. It was aligned with the center of the ankle and 0 degrees of slope, 9 mm was then resected off the unaffected lateral side. There was found to be an acceptable reduction. At this time, posterior osteophytes were removed along with medial and lateral meniscus. A trial implant was placed with a correct sized tibia that was mentioned at the beginning of the dictation. A Ishmael size 2 9-mm CS polyethylene was then placed. The patient's knee was brought through range of motion. The patella was tracking centrally and was stable to varus and valgus stress. Alignment was found to be roughly at 0 degrees. The tibia was stamped and drilled in proper rotation. The universal tibial base plate was impacted into place. Next, the Ishmael size 3 CR press-fit femur was impacted into place and the Sterling size 2 9-mm CS polyethylene was placed. The patient's knee was brought into full extension. The patella was then impacted in place at this time. Tourniquet was deflated. One liter dilute Betadine solution was irrigated through the knee along with 3 L of pulse lavage irrigation with Ancef. Periarticular injection was then completed. The patient's knee was brought through a range of motion. Knee was found to be stable to varus valgus stress, the patella was tracking centrally with full range of motion. At this time, a #2 barbed suture was used for closure of the medial parapatellar arthrotomy. Topical tranexamic acid was placed. 2-0 Vicryl was used subcutaneously, a running 3-0 Monocryl was used subcuticularly. The patient tolerated the procedure well and was sent to the PACU in stable condition. CYNDI /[id number] LETITIA
== END 2017-11-24 16:38 | disposition home or self-care (01) | DRG 470 ==
LOC: JD.SDS 06:46 → JD.MS 06:47 → JD.SDS 12:49 → JD.MS 12:49
PROVIDERS: ADMIT Orthopaedic Surgery; ATTEND Orthopaedic Surgery
PROC: 0SRD0JA Replacement of Left Knee Joint with Synthetic Substitute, Uncemented, Open Approach (ICD-10-PCS; principal; 2017-11-23)
PROC: 3E0T3BZ Introduction of Anesthetic Agent into Peripheral Nerves and Plexi, Percutaneous Approach (ICD-10-PCS; 2017-11-23)
DX: M17.12 Unilateral primary osteoarthritis, left knee (principal); Z68.41 Body mass index [BMI] 40.0-44.9, adult; M25.762 Osteophyte, left knee; G89.29 Other chronic pain; E78.00 Pure hypercholesterolemia, unspecified; E03.9 Hypothyroidism, unspecified; G47.33 Obstructive sleep apnea (adult) (pediatric); F32.9 Major depressive disorder, single episode, unspecified; E66.01 Morbid (severe) obesity due to excess calories; R32 Unspecified urinary incontinence; E55.9 Vitamin D deficiency, unspecified; H54.7 Unspecified visual loss; G25.81 Restless legs syndrome; R42 Dizziness and giddiness; Z90.710 Acquired absence of both cervix and uterus; Z79.82 Long term (current) use of aspirin; Z96.651 Presence of right artificial knee joint; Z79.899 Other long term (current) drug therapy; Z86.010 Personal history of colon polyps
CPT/HCPCS: 01402; 36415; 64450; 73560-26-LT; 73560-LT; 80053; 85027; 87641; 97110-GP; 97116-GP; 97161-GP; 97165-GO; 97535-GO; 99231; 99233; A9270; A9270-GY; C1776; J0171; J0690; J0697; J1885; J2250; J2270; J2704; J2795; J3370; J3490; J7120

== ENCOUNTER 2019-01-24 09:24 | Day surgery (SDC) | payer OTHER ==
[~2019-01-24 09:24] MED LIST changes: -Acetaminophen 325 MG Tab PO SCH; -Pregabalin 25 MG Cap PO SCH; -oxyCODONE ER 10 MG TAB.ER PO SCH
[2019-01-24] MEDS ORDERED: Propofol 200 MG/20 ML SDV ONE (09:36)
[2019-01-24] MEDS ORDERED: fentaNYL 100 MCG/2 ML SDV ONE (09:37)
[2019-01-24] MEDS ORDERED: Midazolam 1 MG/ML 2 ML SDV ONE (09:37)
[2019-01-24] MEDS ORDERED: Lidocaine 1% 4 ML ONE (09:41)
[2019-01-24] MEDS ORDERED: Lidocaine 1% 30 ML SDV ONE (09:53)
[2019-01-24] MEDS ORDERED: Bupivacaine 0.25% 10 ML SDV ONE (09:53)
--- NOTE | 2019-01-24 09:55 | PCM.PREANE ---
Preanesthetic Assessment - Procedure Proposed Procedure: foot right - Anesthesia/Transfusion/Family Hx Anesthesia History: Prior Anesthesia Without Reaction Family History of Anesthesia Reaction: No Transfusion History: No Prior Transfusion(s) Intubation History: Unknown - Review of Systems General: No Symptoms Pulmonary: No Symptoms Cardiovascular: No Symptoms Gastrointestinal: No Symptoms Neurological: No Symptoms Other: Reports: Thyroid Problems - Physical Assessment NPO Status Date: 01/23/19 NPO Status Time: 21:00 Vital Signs: 98.3 16 94% 74 108/63 Height: 5 ft 2 in Weight: 99.4 kg ASA Class: 2 Mental Status: Alert & Oriented x3 Airway Class: Mallampati = 1 Dentition: Reports: Normal Dentition Thyro-Mental Finger Breadths: 3 Mouth Opening Finger Breadths: 3 ROM/Head Extension: Full Lungs: Clear to Auscultation, Normal Respiratory Effort Cardiovascular: Regular Rate, Regular Rhythm - Lab Values: Laboratory Last Values MRSA (PCR) Negative 01/22/19 10:30 - Allergies Allergies/Adverse Reactions: Allergies Allergy/AdvReac Type Severity Reaction Status Date / Time No Known Allergies Allergy Verified 01/23/19 14:56 - Blood Blood Available: No - Acknowledgements Anesthesia Type Planned: General Anesthesia, Regional Block, MAC Pt an Appropriate Candidate for the Planned Anesthesia: Yes Alternatives and Risks of Anesthesia Discussed w Pt/Guardian: Yes Pt/Guardian Understands and Agrees with Anesthesia Plan: Yes PreAnesthesia Questionnaire HEENT History: Reports: Impaired Vision, Other (See Below) Other HEENT History: wears contact Cardiovascular History: Reports: High Cholesterol Respiratory History: Reports: Sleep Apnea (cpap at night) Gastrointestinal History: Reports: Colon Polyp, Hemorrhoids Genitourinary History: Reports: Urinary Incontinence, Other (See Below) Other Genitourinary History: gallstones noted on prior assessment [employer]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: Musculoskeletal History: Reports: Osteoarthritis, Other (See Below) Other Musculoskeletal History: restless leg syndrome Neurological History: Reports: Vertigo Other Psychiatric History: claustophobic Endocrine/Metabolic History: Reports: Hypothyroidism, Obesity/BMI 30+, Vitamin D Deficiency Hematologic History: Reports: None Immunologic History: Reports: None Oncologic (Cancer) History: Reports: None Dermatologic History: Reports: Other (See Below) Other Dermatologic History: lesion to face - Infectious Disease History Infectious Disease History: Reports: Chicken Pox, Shingles - Past Surgical History Head Surgeries/Procedures: Reports: None HEENT Surgical History: Reports: Tonsillectomy Cardiovascular Surgical History: Reports: None Respiratory Surgical History: Reports: None GI Surgical History: Reports: Colonoscopy Female Surgical History: Reports: D&C, Hysterectomy Male Surgical History: Reports: None Endocrine Surgical History: Reports: None Neurological Surgical History: Reports: Laminectomy Musculoskeletal Surgical History: Reports: Knee Replacement Other Musculoskeletal Surgeries/Procedures:: bilateral knee replacements Oncologic Surgical History: Reports: None Dermatological Surgical History: Reports: Skin Biopsy - SUBSTANCE USE Smoking Status *Q: Never Smoker Tobacco Use Within Last Twelve Months: No Second Hand Smoke Exposure: No Days Per Week of Alcohol Use: 1 Number of Drinks Per Day: 1 Total Drinks Per Week: 1 Recreational Drug Use History: No - HOME MEDS Home Medications: Home Meds Multivitamin [Multi-Vitamin Daily] 1 tab PO DAILY 03/03/14 [History] Tolterodine [Detrol] 1 mg PO DAILY PRN 03/03/14 [History] Vitamin B Complex [B Complex] 1 tab PO DAILY 03/03/14 [History] rOPINIRole HCl [Requip] 0.5 mg PO DAILY PRN 07/12/17 [History] Ascorbic Acid [Vitamin C] 500 mg PO BID 11/22/17 [History] Calcium Carbonate/Vitamin D3 [Calcium 600 + Vit D 400 Softgl] 1 tab PO DAILY [History] Cholecalciferol (Vitamin D3) [Vitamin D3] 2,000 unit PO BID 11/22/17 [History] Levothyroxine [Synthroid] 50 mcg PO DAILY 11/22/17 [History] Magnesium Oxide [Magnesium] 500 mg PO DAILY 11/22/17 [History] Rosuvastatin Calcium 10 mg PO DAILY 01/23/19 [History] Acetaminophen/HYDROcodone [[place] 325-5 MG] 1 - 2 tab PO Q6H PRN #30 tablet 01/24 [Rx] Aspirin 325 mg PO BID #84 tab 01/24/19 [Rx] - CURRENT (IN HOUSE) MEDS Current Meds: Current Medications Lactated Ringer's (Ringers, Lactated) 1,000 mls @ 125 mls/hr IV ASDIRECTED ALYSA Stop: 01/24/19 23:00 Lidocaine/Sodium Bicarbonate (Buffered Lidocaine 1% In Ns 8.4%) 0.25 ml IDERM ONETIME PRN PRN Reason: Prior to IV Start Stop: 01/24/19 18:00 Sodium Chloride (Saline Flush) 10 ml FLUSH ASDIRECTED PRN PRN Reason: Keep Vein Open Stop: 01/24/19 18:00 Discontinued Medications Fentanyl (Sublimaze) Confirm Administered Dose 100 mcg .ROUTE .STK-MED ONE Stop: 01/24/19 09:38 Lidocaine HCl (Xylocaine-Mpf 1%) Confirm Administered Dose 4 mls @ as directed .ROUTE .STK-MED ONE Stop: 01/24/19 09:42 Midazolam HCl (Versed 1 Mg/Ml) Confirm Administered Dose 2 mg .ROUTE .STK-MED ONE Stop: 01/24/19 09:38 Propofol (Diprivan 20 Ml) Confirm Administered Dose 400 mg .ROUTE .STK-MED ONE Stop: 01/24/19 09:37
[2019-01-24] MEDS: Lactated Ringers 1,000 ML IV SCH ×2 (10:00→16:25)
[2019-01-24] MEDS ORDERED: Dexamethasone 4 MG/ML 5 ML MDV ONE (10:58)
[2019-01-24] MEDS ORDERED: Ondansetron 4 MG/2 ML SDV ONE ×2 (10:58→13:51)
--- NOTE | 2019-01-24 13:12 | CR ---
Right foot: Eleven fluoroscopic spot views were obtained utilizing C-arm device of the right mid foot/metatarsal region. Study is procedural exam showing surgery within the 2nd toe and 2nd metatarsal. Fluoroscopy time is given as 33.2 seconds. Impression: 1. Findings as noted above. Diagnostic code #2
[2019-01-24] MEDS ORDERED: diphenhydrAMINE 50 MG/ML SDV IVPUSH PRN (13:18)
[2019-01-24] MEDS ORDERED: Ondansetron 4 MG/2 ML SDV IVPUSH PRN (13:18)
--- NOTE | 2019-01-24 13:19 | PCM.POSTAN ---
POST ANESTHESIA ASSESSMENT - MENTAL STATUS Mental Status: Alert - VITAL SIGNS Vital Signs: 1312 130/67, 97 NC, 80 HR, 12, 97.4 Last Vital Signs Temp 36.8 C 01/24/19 09:45 Pulse 74 01/24/19 09:45 Resp 16 01/24/19 09:45 BP 108/63 01/24/19 09:45 Pulse Ox 94 L 01/24/19 09:45 - RESPIRATORY Respiratory Status: Respiratory Rate WNL, Airway Patent, O2 Saturation Stable, Supplemental Oxygen - CARDIOVASCULAR CV Status: Pulse Rate WNL, Blood Pressure Stable - GASTROINTESTINAL GI Status: No Symptoms - PAIN Pain Score: 0 - POST OP HYDRATION Hydration Status: Adequate & Stable
[2019-01-24] MEDS ORDERED: Acetaminophen/HYDROcodone 325-5 MG Tab PO PRN (13:29)
[2019-01-24] MEDS: fentaNYL 100 MCG/2 ML SDV IVPUSH PRN ×2 (13:42→16:01)
[2019-01-24] MEDS ORDERED: HYDROmorphone 0.5 MG/0.5 ML Syringe ONE ×2 (13:51)
[2019-01-24] MEDS ORDERED: ceFAZolin 1 GM Vial ONE (13:51)
--- NOTE | 2019-01-24 14:11 | PCM48HPAN ---
Post Anesthesia Note - EVALUATION WITHIN 48HRS OF ANESTHETIC Vital Signs in Normal Range: Yes Patient Participated in Evaluation: Yes Respiratory Function Stable: Yes Airway Patent: Yes Cardiovascular Function Stable: Yes Hydration Status Stable: Yes Pain Control Satisfactory: Yes Nausea and Vomiting Control Satisfactory: Yes Mental Status Recovered: Yes Vital Signs: Last Vital Signs Temp 01/24/19 14:00 Pulse 74 01/24/19 09:45 Resp 15 01/24/19 14:00 BP 133/63 01/24/19 14:00 Pulse Ox 98 01/24/19 14:00
[2019-01-24] MEDS ORDERED: Acetaminophen 325 MG Tab PO ONE (16:15)
[2019-01-24 17:56] VITALS: BP 104/59; PULSE 61
--- NOTE | 2019-01-29 14:02 | PCM.OPNOTE ---
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
--- NOTE | 2019-01-29 15:09 | OR ---
DATE OF OPERATION: 01/24/2019 SURGEON: Capo Le MD OPERATION PERFORMED: Right foot dorsal exostectomy of the 2nd metatarsal shortening osteotomy with metatarsophalangeal joint capsulotomy and extensor lengthening with resection arthroplasty of middle phalanx of 2nd toe. PREOPERATIVE DIAGNOSIS: Right foot pain with dorsal osteophyte of talus and splayed toe deformity of 2nd and 3rd toes with metatarsalgia. POSTOPERATIVE DIAGNOSIS: Right foot pain with dorsal osteophyte of talus and splayed toe deformity of 2nd and 3rd toes with metatarsalgia. ANESTHESIA: General LMA with local. ANESTHESIA PROVIDER: Laquita Finch. WAREHOUSE MANAGER: Shruti Velasquez PA-C. ESTIMATED BLOOD LOSS: 200 mL. COMPLICATIONS: None. CONDITION: Stable. DESCRIPTION OF PROCEDURE: The patient was identified in the preoperative holding area. Proper site was marked and identified by the surgeon. The patient was taken back to the operating theater where after adequate anesthesia, the patient had a nonsterile tourniquet applied to the right lower extremity. The right lower extremity was than sterilely prepped and draped in the usual sterile fashion. OR time-out was performed. The patient received 2 g of IV Ancef. Right lower extremity was then exsanguinated and tourniquet was insufflated to 250 mmHg. At this time, I started with the dorsal bossing of the talonavicular joint. At this time, incision was made over the dorsum of the talonavicular joint. Blunt dissection was taken down to the capsule. Capsulotomy was then performed and resection of the dorsal bossing was then done and resection of the osteophyte down to a smooth border. A rasp was then used. Attention was turned to the 2nd metatarsal at this time. After palpating the 3rd metatarsal, it did not seem like it was all that long. It was mostly the 2nd metatarsal. So an incision was made over the dorsum of the 2nd metatarsal. The extensor tendon was identified and was retracted and incision was made over the dorsum of the entire 2nd metatarsal. This was then exposed using a microsagittal saw. A long oblique osteotomy was then done of the 2nd metatarsal. This was then shortened and then two 2.0 cannulated Rosalia titanium screws were then placed. After it was in, it was found to be in assured position back to the level of the 3rd toe. Once we had osteotomy in proper place, the screws were placed and it was found to have adequate compression across the osteotomy site. Attention was turned to the capsule of the 2nd toe. Incision was made over the 2nd MTP joint and over the middle phalanx of the 2nd toe. The extensor tendon had a Z-lengthening done at this time as well and the capsule of the MTP joint was identified and it was released on the medial side secondary to the significant tightening of the medial side of the capsule. Once this was freed, a resection arthroplasty of the middle phalanx was then done under direct C-arm fluoroscopy. A K-wire was then placed in a retrograde fashion through the phalanx into the metatarsal in a corrected position. It was noted to have correct position on both AP and lateral views with all the hardware and good intact placed. At this time, please note that during the procedure it was a very difficult patient, had to release the tourniquet and there was significant blood loss compared to normal procedures for this, but right at the end, it was controlled by the end. Adequate saline was irrigated through all wounds. Closure was done with 3-0 Vicryl as well as nylon. The patient was placed in a sterile soft dressing and posterior slab splint and sent to the PACU in stable condition. CYNDI /[id number]
== END 2019-01-24 17:50 | disposition home or self-care (01) ==
LOC: JD.SDS 09:24
PROVIDERS: ATTEND Orthopaedic Surgery
DX: M25.774 Osteophyte, right foot (principal); M20.41 Other hammer toe(s) (acquired), right foot; E78.00 Pure hypercholesterolemia, unspecified; E03.9 Hypothyroidism, unspecified; E66.9 Obesity, unspecified; G47.33 Obstructive sleep apnea (adult) (pediatric); M48.07 Spinal stenosis, lumbosacral region; M16.12 Unilateral primary osteoarthritis, left hip; Z68.41 Body mass index [BMI] 40.0-44.9, adult; Z99.89 Dependence on other enabling machines and devices; Z96.653 Presence of artificial knee joint, bilateral; Z79.899 Other long term (current) drug therapy
CPT/HCPCS: 28100; 28285; 28308; 76000; 87641; A9270; C1713; C1769; J0690; J1100; J1170; J2001; J2250; J2405; J2704; J3010; J7120; 01480; J3490

== ENCOUNTER 2020-09-10 06:18 | Day surgery (SDC) | payer OTHER ==
--- NOTE | 2020-09-09 09:31 | PCM.PREANE ---
Preanesthetic Assessment - Procedure Proposed Procedure: Left Knee Video Arthroscopy with partial synovectomy of left total knee arthroplasty - Anesthesia/Transfusion/Family Hx Anesthesia History: Prior Anesthesia Without Reaction Family History of Anesthesia Reaction: No Transfusion History: No Prior Transfusion(s) Intubation History: Unknown - Review of Systems General: No Symptoms Pulmonary: No Symptoms (ROSALIE- CPAP at night/ ETOH:1/2 per week/ History of COVID February 2020) Cardiovascular: No Symptoms (Elevated cholesterol) Gastrointestinal: No Symptoms Neurological: No Symptoms (History of vertigo), Dizziness, Tingling (History of back surgery/laminectomy 2009, bilateral CTS) Other: Reports: Easy Bruising, Thyroid Problems (hypothyroid) - Physical Assessment NPO Status Date: 09/09/20 NPO Status Time: 22:30 Vital Signs: HR: 68 Sat: 96% Temp: 97.9 B/P: 125/62 Resp: 16 Height: 1.57 m Weight: 107 kg ASA Class: 3 Mental Status: Alert & Oriented x3 Airway Class: Mallampati = 2 Dentition: Reports: Normal Dentition, Armour(s), Implants, Caries Thyro-Mental Finger Breadths: 3 Mouth Opening Finger Breadths: 3 ROM/Head Extension: Full Lungs: Clear to Auscultation, Normal Respiratory Effort Cardiovascular: Regular Rate, Regular Rhythm, No Murmurs - Lab Values: All labs reviewed and noted and within acceptable ranges to proceed with scheduled procedure. - Imaging/EKG Impressions: EKG: SR rate=69 Carotid Doppler: negative CXR: negative Echocardiogram: 03/20/2020 EF: 55-60% - Allergies Allergies/Adverse Reactions: Allergies Allergy/AdvReac Type Severity Reaction Status Date / Time No Known Allergies Allergy Verified 09/09/20 15:58 - Anesthesia Plan Pre-Op Medication Ordered: None, Other (scopalamine patch 1.5mg @ 0640) - Acknowledgements Anesthesia Type Planned: General Anesthesia Pt an Appropriate Candidate for the Planned Anesthesia: Yes Alternatives and Risks of Anesthesia Discussed w Pt/Guardian: Yes Pt/Guardian Understands and Agrees with Anesthesia Plan: Yes PreAnesthesia Questionnaire HEENT History: Reports: Impaired Vision, Other (See Below) Other HEENT History: wears contact Cardiovascular History: Reports: High Cholesterol Respiratory History: Reports: Sleep Apnea (cpap at night) Gastrointestinal History: Reports: Colon Polyp, Hemorrhoids Genitourinary History: Reports: Urinary Incontinence, Other (See Below) Other Genitourinary History: gallstones noted on prior assessment INCLUSION SPECIALIST History: Reports: Musculoskeletal History: Reports: Osteoarthritis, Other (See Below) Other Musculoskeletal History: restless leg syndrome Neurological History: Reports: Vertigo Psychiatric History: Reports: Depression Other Psychiatric History: claustophobic Endocrine/Metabolic History: Reports: Hypothyroidism, Obesity/BMI 30+, Vitamin D Deficiency Hematologic History: Reports: None Immunologic History: Reports: None Oncologic (Cancer) History: Reports: None Dermatologic History: Reports: Other (See Below) Other Dermatologic History: lesion to face - Infectious Disease History Infectious Disease History: Reports: Chicken Pox, Shingles - Past Surgical History Head Surgeries/Procedures: Reports: None HEENT Surgical History: Reports: Tonsillectomy Cardiovascular Surgical History: Reports: None Respiratory Surgical History: Reports: None GI Surgical History: Reports: Colonoscopy Female Surgical History: Reports: D&C, Hysterectomy Male Surgical History: Reports: None Endocrine Surgical History: Reports: None Neurological Surgical History: Reports: Laminectomy Musculoskeletal Surgical History: Reports: Knee Replacement Other Musculoskeletal Surgeries/Procedures:: bilateral knee replacements Oncologic Surgical History: Reports: None Dermatological Surgical History: Reports: Skin Biopsy - HOME MEDS Home Medications: Home Meds Multivitamin [Multi-Vitamin Daily] 1 tab PO DAILY 03/03/14 [History] Tolterodine [Detrol] 1 mg PO DAILY PRN 03/03/14 [History] Vitamin B Complex [B Complex] 1 tab PO DAILY 03/03/14 [History] rOPINIRole HCl [Requip] 0.5 mg PO DAILY PRN 07/12/17 [History] Ascorbic Acid [Vitamin C] 500 mg PO DAILY 11/22/17 [History] Calcium Carbonate/Vitamin D3 [Calcium 600Mg-D3 400 Unit Sfgl] 1 tab PO DAILY 11/22/17 [History] Cholecalciferol (Vitamin D3) [Vitamin D3] 2,000 unit PO BID 11/22/17 [History] Levothyroxine [Synthroid] 50 mcg PO DAILY 11/22/17 [History] Aspirin [Aspirin EC] 325 mg PO BID #60 tab 09/09/20 [Rx] Diclofenac Sodium [Voltaren 1% Gel] 1 dose TOP BID PRN 09/09/20 [History] Hydrocodone/Acetaminophen [Hydrocodone-Acetamin 5-325 mg] 1 - 2 each PO Q6H PRN #15 tablet 09/09/20 [Rx] Magnesium Oxide 400 mg PO DAILY 09/09/20 [History] Rosuvastatin [Crestor] 5 mg PO DAILY 09/09/20 [History] - CURRENT (IN HOUSE) MEDS Current Meds: Current Medications Lactated Ringer's (Ringers, Lactated) 1,000 mls @ 125 mls/hr IV ASDIRECTED ALYSA Stop: 09/10/20 23:00 Lidocaine/Sodium Bicarbonate (Lidocaine 1%/Sod Bicarbonate In Ns 8.4% 1 Ml Syringe) 0.25 ml IDERM ONETIME PRN PRN Reason: Prior to IV Start Stop: 09/10/20 23:00 Scopolamine (Scopolamine 1.5 Mg Transdermal Patch) 1.5 mg TRDERM ONETIME PRN PRN Reason: vertigo Stop: 09/10/20 18:00 Sodium Chloride (Sodium Chloride 0.9% 10 Ml Syringe) 10 ml FLUSH ASDIRECTED PRN PRN Reason: Keep Vein Open Stop: 09/10/20 23:00
[~2020-09-10 06:18] MED LIST changes: +Dexamethasone 4 MG/ML 5 ML MDV ONE; +HYDROmorphone 0.5 MG/0.5 ML Syringe ONE; +Ketorolac 30 MG/ML SDV ONE; +Lactated Ringers 1,000 ML IV SCH; +Lactated Ringers 1,000 ML ONE; +Lidocaine 1% 4 ML ONE; +Midazolam 1 MG/ML 2 ML SDV ONE; +Ondansetron 4 MG/2 ML SDV ONE; +Propofol 200 MG/20 ML SDV ONE; +Rocuronium 50 MG/5 ML Vial ONE; +Scopolamine 1.5 MG Transdermal Patch TRDERM PRN; +ceFAZolin 1 GM Vial ONE; +fentaNYL 250 MCG/5 ML SDV ONE
[2020-09-10] MEDS ORDERED: Bupivacaine 0.25% 10 ML SDV ONE (06:24)
[2020-09-10] MEDS ORDERED: EPINEPHrine 1 MG/ML 30 ML MDV IRR SCH (07:00)
[2020-09-10] MEDS ORDERED: diphenhydrAMINE 50 MG/ML SDV ONE (07:33)
[2020-09-10] MEDS ORDERED: ePHEDrine 50 MG/ML SDV ONE (07:35)
[2020-09-10] MEDS ORDERED: ePHEDrine 50 MG/ML SDV IVPUSH PRN (07:37)
[2020-09-10] MEDS ORDERED: Ondansetron 4 MG/2 ML SDV IVPUSH PRN (07:37)
[2020-09-10] MEDS ORDERED: fentaNYL 100 MCG/2 ML SDV IVPUSH PRN (07:37)
[2020-09-10] MEDS ORDERED: Albuterol 0.083% 2.5 MG/3 ML Neb Soln NEB PRN (07:37)
[2020-09-10] MEDS ORDERED: HYDROmorphone 0.5 MG/0.5 ML Syringe IVPUSH PRN (07:37)
[2020-09-10] MEDS ORDERED: Glycopyrrolate 0.2 MG/ML SDV ONE (07:47)
--- NOTE | 2020-09-10 07:59 | PCM.OPNOTE ---
- General Post-Op/Procedure Note Date of Surgery/Procedure: 09/10/20 Operative Procedure(s): left knee video arthroscopy with partial synovectomy Pre Op Diagnosis: painful left total knee arthroplasty Post-Op Diagnosis: Same Anesthesia Technique: General LMA, Local Primary Surgeon: Capo Le Anesthesia Provider: Shirin Dye Pourer Crane Ladle: Shruti Velasquez in mLs: 5 Complications: None Condition: Good
--- NOTE | 2020-09-10 08:18 | PCM.POSTAN ---
POST ANESTHESIA ASSESSMENT - MENTAL STATUS Mental Status: Alert - VITAL SIGNS Vital Signs: Last Vital Signs Temp 97.9 C H 09/10/20 08:10 Pulse 76 09/10/20 0810 Resp 11 L 09/10/20 08:10 BP 129/70 09/10/20 08:10 Pulse Ox 95 09/10/20 08:10 - RESPIRATORY Respiratory Status: Respiratory Rate WNL, Airway Patent, O2 Saturation Stable, Supplemental Oxygen - CARDIOVASCULAR CV Status: Pulse Rate WNL, Blood Pressure Stable - GASTROINTESTINAL GI Status: No Symptoms - POST OP HYDRATION Hydration Status: Adequate & Stable
--- NOTE | 2020-09-10 08:35 | OR ---
DATE OF OPERATION: 09/10/2020 SURGEON: Capo Le MD OPERATION PERFORMED: Left knee video arthroscopy with partial synovectomy. PREOPERATIVE DIAGNOSIS: Painful left total knee arthroplasty. POSTOPERATIVE DIAGNOSIS: Painful left total knee arthroplasty. ANESTHESIA: General LMA with local. ANESTHESIA PROVIDER: Shirin Dye CRNA SUPERINTENDENT STATIONS: Shruti Velasquez PA-C ESTIMATED BLOOD LOSS: Less than 5 mL. COMPLICATIONS: None. CONDITION: Stable. DESCRIPTION OF PROCEDURE: The patient was identified in the preoperative holding area where proper site was marked and identified. The patient was taken back to the operating theater, where after adequate anesthesia, the patient had a nonsterile tourniquet applied in the left lower extremity. The patient's right lower extremity was placed in a well leg aaron. Left lower extremity had a C-clamp aaron applied. Foot of the bed was then lowered. Left lower extremity was then sterilely prepped and draped in the usual sterile fashion. OR time-out was performed. The patient received 2 g IV Ancef. Left lower extremity was exsanguinated. Tourniquet was insufflated to 250 mmHg. Standard anterior lateral portal incision was made. Scope trocar was introduced to the patellofemoral joint. The patient was noted to have a large amount of scar tissue that was entrapped between the patellofemoral joint on medial and midportion as well as infrapatellar. At this time, attention was turned to medial compartment. With the use of spinal needle, anteromedial portal was created. At this time, the patient was noted to have some entrapped tissue in the medial compartment. A partial synovectomy was done back to a stable rim of the medial side. Lateral side showed really no synovitis. At this time, a partial synovectomy was performed of the patellofemoral joint on both the medial side as well as suprapatellar, and all around the patella back to a stable rim. By the end, there was no entrapped tissue in the patellofemoral joint. The patient had full range of motion. Excess saline was drained from the knee. 3-0 nylon suture was used for closure of the skin. 0.25% Marcaine was injected around the incisions. The patient had a sterile soft dressing applied and was sent to the PACU in stable condition. MMODAL /[id number]
[2020-09-10 08:44] VITALS: PULSE 52
--- NOTE | 2020-09-10 09:12 | PCM48HPAN ---
Post Anesthesia Note - EVALUATION WITHIN 48HRS OF ANESTHETIC Vital Signs in Normal Range: Yes Patient Participated in Evaluation: Yes Respiratory Function Stable: Yes Airway Patent: Yes Cardiovascular Function Stable: Yes Hydration Status Stable: Yes Pain Control Satisfactory: Yes Nausea and Vomiting Control Satisfactory: Yes Mental Status Recovered: Yes Vital Signs: Last Vital Signs Temp 36.6 C 09/10/20 09:00 Pulse 52 L 09/10/20 08:50 Resp 15 09/10/20 09:00 BP 115/67 09/10/20 09:00 Pulse Ox 95 09/10/20 09:00
[2020-09-10 10:34] VITALS: BP 110/58
== END 2020-09-10 10:06 | disposition home or self-care (01) ==
LOC: JD.SDS 06:18
PROVIDERS: ATTEND Orthopaedic Surgery
DX: M96.89 Other intraoperative and postprocedural complications and disorders of the musculoskeletal system (principal); M25.562 Pain in left knee; Z79.899 Other long term (current) drug therapy; E03.9 Hypothyroidism, unspecified; G47.30 Sleep apnea, unspecified; E78.5 Hyperlipidemia, unspecified; Z86.16 Personal history of COVID-19; E66.9 Obesity, unspecified; Z68.41 Body mass index [BMI] 40.0-44.9, adult
CPT/HCPCS: 29876; A9270; J0690; J1100; J1170; J1200; J1885; J2250; J2405; J2704; J2710; J3010; J3490; J7120; 01400